=== PATIENT | male | born 1965 | race Caucasian/White ===

== ENCOUNTER 2022-02-16 17:57 | Inpatient (IN) ==
--- NOTE | 2022-02-16 19:18 | DR.GENAD ---
HPI Time Seen Time Seen by Provider: 02/16/22 19:05 PCP Primary Care Physician: Mena Complaint/Symptoms Chief Complaint Doctors Comments: LARGE GLUTEAL ABSCES FOR 3 DAYS,STARTED ON ANTIBIOTICS BY PCP ON YESTERDAY. STATED THAT HE DEVELOPED A FEVER TDAY AND MORE PAIN IN THAT AREA AND WAS NOT GIVEN PAIN MEDICATION BY PCP YETERDAY. Chief Complaint:: Pt states he has a large abcsess on his buttock that started three days ago. He was seen by PCP yesterday and started on antibiotics. He reports pain has worsened today and he has had a fever. COVID-19 Coronavirus risk:travel/contact w/high risk person: No Has patient experienced Coronavirus symptoms: No Source History Provided: Patient Mode of Arrival Mode of Arrival: Ambulatory Timing Onset of Chief Complaint: 02/14/22 PMH PMH Past Medical History: Yes Past Medical History: Diabetes Past Surgical History: Yes Surgical History: Appendectomy and Ortho Surgery Family History History of Family Medical Conditions: No Social History Does patient currently use any type of tobacco product: Yes Have you used tobacco products in the last 12 months: Yes Type of Tobacco Use: Cigarettes Does any household member use tobacco: No Alcohol Use: None Do you use any recreational Drugs:: No Lives With: Spouse Lives Where: Home Travel Risk Coronavirus risk:travel/contact w/high risk person: No Has patient experienced Coronavirus symptoms: No Infectious screening In the last 2 months have you had wt loss of >10#?: NO Have you had fever, night sweats or hemotysis?: No Have you traveled outside the country in the last 6 months?: No Isolation: Standard ROS Review of Systems Constitutional: No Symptoms Reported Eyes: No Symptoms Reported ENTM: No Symptoms Reported Respiratoy: No Symptoms Reported Cardiovascular: No Symptoms Reported Gastrointestinal/Abdominal: No Symptoms Reported Genitourinary: No Symptoms Reported and Other (R GLUTEAL ABSCESS.) Neurological: No Symptoms Reported Musculoskeletal: No Symptoms Reported Integumentary: No Symptoms Reported Hematologic/Lymphatic: No Symptoms Reported Endocrine: No Symptoms Reported Psychiatric: No Symptoms Reported All Other Systems: Reviewed and Negative PE Vital Signs Vitals: Temperature 98.3 F Pulse Rate 124 Respiratory Rate 24 Blood Pressure [Left Arm] 132/78 Blood Pressure 139/80 O2 Sat by Pulse Oximetry 98 General Limitations: No Limitations General Appearance: Alert and In No Apparent Distress Head Head Exam: Normal Inspection Eyes Eye exam: Normal Appearance ENT ENT Exam: Normal Exam External Ear Exam: Normal External Inspection TM/Canal Exam: Bilateral: Normal Nose Exam: Normal Nose Exam Mouth Exam: Normal Inspection Throat Exam: Normal Inspection Neck Neck Exam: Normal Inspection Chest Chest Inspection: Normal Inspection Respiratory Respiratory Exam: Normal Lung Sounds Bilat Respiratory Exam: Bilateral: Clear to Auscultation Cardiovascular Cardiovascular Exam: Regular Rate and Normal Rhythm Abdominal Exam Abdominal Exam: Normal Inspection, Normal Bowel Sounds and Soft Extremities Extremities Exam: Normal Inspection Back Back Exam: Normal Inspection Neurologic Neurological Exam: Alert and Oriented X3 Psychiatric Psychiatric Exam: Normal Affect and Normal Mood Skin Skin Exam: Warm, Dry, Intact, Normal Color and Other (R GLUTEAL ABSCESS) MDM Additional Information Findings: R GLUTEAL ABSCESS Differential Diagnosis Differential Diagnosis: GLUTEAL ABSCESS COURSE Treatment Treatment: PATIENT GOT BLOOD WORK AND HAD ELVATED WBC OF 21.2 AND HE HAD AN I AND D OF HIS R GLUTEAL ABSCESS AND WAS GIVEN CLINDAMYCIN 600MG IV. SPOKE TO DR ESPINOSA AND SHE STATED SHE WOULD ACCEPT THE PATIENT TO HOSPITAL FOR LEUCOCYTOSIN AND GLUTEAL ABSCESS. BLOOD CULTURES AND WOUND CULTURES WERE SENT. PATIENT IS AWARE OF THE INTENT TO ADMIT AND IS AGREABLE TO THE ADMISSION. ROR Labs Reviewed Laboratory Results Reviewed?: Yes Result Diagrams: 02/16/22 19:35 02/16/22 19:35 Laboratory: 02/16/22 23:35 Buttock Wound Gram Stain - Final WBC 21.2 X10^3/uL (3.6-10.0) H 02/16/22 19:35 RBC 4.79 X10^6/uL (4.7-6.0) 02/16/22 19:35 Hgb 15.2 g/dL (13.5-18.0) 02/16/22 19:35 Hct 43.1 % (42.0-54.0) 02/16/22 19:35 MCV 89.9 fL (80.0-100.0) 02/16/22 19:35 MCH 31.7 pg (27.0-34.0) 02/16/22 19:35 MCHC 35.3 g/dL (33.0-35.0) H 02/16/22 19:35 RDW 13.3 % (11.6-16.5) 02/16/22 19:35 Plt Count 311 X10^3/uL (150.0-450.0) 02/16/22 19:35 Plt Count Comment Adequate (ADEQUATE) 02/16/22 19:35 MPV 9.0 fL (7.4-11.0) 02/16/22 19:35 Neut % (Auto) 83.1 % (42.0-75.0) H 02/16/22 19:35 Lymph % (Auto) 7.1 % (21.0-51.0) L 02/16/22 19:35 Giles % (Auto) 8.0 % (0.0-13.0) 02/16/22 19:35 Eos % (Auto) 1.1 % (0.9-2.9) 02/16/22 19:35 Baso % (Auto) 0.7 % (0.2-1.0) 02/16/22 19:35 Neut # (Auto) 17.7 x10^3/uL (2.2-4.8) H 02/16/22 19:35 Lymph # (Auto) 1.5 X10^3/uL (1.3-2.9) 02/16/22 19:35 Giles # (Auto) 1.7 x10^3/uL (0.3-0.8) H 02/16/22 19:35 Eos # (Auto) 0.2 x10^3/uL (0.0-0.2) 02/16/22 19:35 Baso # (Auto) 0.1 X10^3/uL (0.0-0.1) 02/16/22 19:35 Absolute Nucleated RBC 0.0 /100WBC 02/16/22 19:35 Total Counted 100 02/16/22 19:35 Neutrophils % (Manual) 86 % (39-76) H 02/16/22 19:35 Band Neutrophils % 1 % (0-10) 02/16/22 19:35 Lymphocytes % (Manual) 6 % (13-43) L 02/16/22 19:35 Monocytes % (Manual) 5 % (4-9) 02/16/22 19:35 Eosinophils % (Manual) 2 % (0-6) 02/16/22 19:35 Plt Morphology Comment Normal (NORMAL) 02/16/22 19:35 RBC Morphology Normal (NORMAL) 02/16/22 19:35 Sodium 132 mmol/L (136-145) L 02/16/22 19:35 Corrected Sodium 138 mmol/L (136-145) 02/16/22 19:35 Potassium 4.9 mmol/L (3.5-5.1) 02/16/22 19:35 Chloride 94 mmol/L (98-107) L 02/16/22 19:35 Carbon Dioxide 28.6 mmol/L (21-32) 02/16/22 19:35 BUN 17 mg/dL (7-18) 02/16/22 19:35 Creatinine 1.05 mg/dL (0.70-1.30) 02/16/22 19:35 Est GFR (MDRD) Af Amer > 60 (>60) 02/16/22 19:35 Est GFR (MDRD) Non-Af > 60 (>60) 02/16/22 19:35 Glucose 341 mg/dL (65-99) H 02/16/22 19:35 Calcium 9.3 mg/dL (8.5-10.1) 02/16/22 19:35 Corrected Calcium 10.1 mg/dL (8.5-10.1) 02/16/22 19:35 Total Bilirubin 0.60 mg/dL (0.2-1.0) 02/16/22 19:35 AST 25 Units/L (15-37) 02/16/22 19:35 ALT 55 Units/L (12-78) 02/16/22 19:35 Alkaline Phosphatase 152 Units/L (46-116) H 02/16/22 19:35 Total Protein 7.7 g/dL (6.4-8.2) 02/16/22 19:35 Albumin 3.0 g/dL (3.4-5.0) L 02/16/22 19:35 Globulin 4.7 g/dL (2.5-4.5) H 02/16/22 19:35 Albumin/Globulin Ratio 0.6 Ratio (1.1-2.1) L 02/16/22 19:35 Other Results Comments: SODIUM LOW AT 132 AND GLUCOSE HIGH AT 341. WBC 21.2 Opioid Opioid Risk Tool Age (Quoc box if 16-45): No History of Preadolescent Sexual Abuse: No Total: 0 Total Score Risk Category: Low Risk Copyright: Freddy HORTON predicting aberrant behaviors Procedures Incision and Drainage Site: R GLUTEAL Blade Size: 11 I & D Procedure: betadine prep, sterile drapes applied, sterile dressing applied and gauze wick placed Progress: PROCEDURE WAS EXPLAINED ANDPATIENT SIGNED CONSENT FORM. AREA WAS CLEANED ITH BETADINE AND 10 CC 1%LIDOCAINE INJECTED, INCISED WITH #11 BLADE AND COPIOUS AMOUNTS OF PUNGENT EXUDATE WS OBTAINED. WOUND CULTURES WERE TAKEN AND LOCULATIONS WERE BROKEN WITH HEMOSTATS. AREA WAS FLUSHED WITH 180CC OF NACL AND IODOFORM GAUZE WAS PLACED AND AREA WAS CLEANED BY NURSE AND 4X4'S WERE APPLIED.PATIENT WAS GIVEN 600MG OF CLIDAMYCIN IFV AND SINCE HE HAS A 21.2 WILL ADMIT TO HOSPITAL FOR FURTHER THERAPY. BC WERE ALSO SENT. Diagnosis Discharge Problem: Abscess, gluteal, right, Hyperglycemia Leukocytosis (leucocytosis) Qualifiers: Qualified Code(s): D72.829 - Elevated white blood cell count, unspecified Instructions Forms: Precautions for COVID19 [facility] Social Distancing
[2022-02-16 19:50] LABS: BASOPHILS # (AUTO) 0.1 X10^3/uL (0.0-0.1); BASOPHILS % (AUTO) 0.7 % (0.2-1.0); EOSINOPHILS # (AUTO) 0.2 x10^3/uL (0.0-0.2); EOSINOPHILS % (AUTO) 1.1 % (0.9-2.9); HEMATOCRIT 43.1 % (42.0-54.0); HEMOGLOBIN 15.2 g/dL (13.5-18.0); LYMPHOCYTES # (AUTO) 1.5 X10^3/uL (1.3-2.9); LYMPHOCYTES % (AUTO) 7.1 % (21.0-51.0); MEAN CORPUSCULAR HEMOGLOBIN 31.7 pg (27.0-34.0); MEAN CORPUSCULAR HGB CONC 35.3 g/dL (33.0-35.0); MEAN CORPUSCULAR VOLUME 89.9 fL (80.0-100.0); MONOCYTES # (AUTO) 1.7 x10^3/uL (0.3-0.8); NEUTROPHILS # (AUTO) 17.7 x10^3/uL (2.2-4.8); NEUTROPHILS % (AUTO) 83.1 % (42.0-75.0); RED BLOOD COUNT 4.79 X10^6/uL (4.7-6.0); RED CELL DISTRIBUTION WIDTH 13.3 % (11.6-16.5); WHITE BLOOD COUNT 21.2 X10^3/uL (3.6-10.0)
[2022-02-16 20:02] LABS: ALANINE AMINOTRANSFERASE 55 Units/L (12-78); ALKALINE PHOSPHATASE 152 Units/L (46-116); ASPARTATE AMINO TRANSFERASE 25 Units/L (15-37); BLOOD UREA NITROGEN 17 mg/dL (7-18); CALCIUM 9.3 mg/dL (8.5-10.1); CARBON DIOXIDE 28.6 mmol/L (21-32); CHLORIDE 94 mmol/L (98-107); COR CA(FOR HYPOALB) 10.1 mg/dL (8.5-10.1); COR NA(FOR HYPERGLY) 138 mmol/L (136-145); CREATININE 1.05 mg/dL (0.70-1.30); SODIUM 132 mmol/L (136-145); TOTAL PROTEIN 7.7 g/dL (6.4-8.2); eGFR NON BLACK RACES > 60 (>60)
[2022-02-16 20:17] LABS: BAND NEUTROPHILS % 1 % (0-10)
[2022-02-16 20:18] LABS: PLATELET MORPHOLOGY COMMENT NORMAL (NORMAL)
[2022-02-16] MEDS ORDERED: XYLOCAINE 1 % (PLAIN) IM ONE (22:57)
[2022-02-16] MEDS ORDERED: XYLOCAINE 1 % (PLAIN) ONE (22:59)
[2022-02-16] MEDS ORDERED: BETADINE SOLN ONE (22:59)
[2022-02-16] MEDS ORDERED: BETADINE SOLN TOP ONE (23:16)
[2022-02-16] MEDS ORDERED: STERILE WATER IRRIGATION IR ONE (23:27)
[2022-02-16] MEDS ORDERED: NS 1,000 ML IV 1,000 ML ONE (23:52)
[2022-02-16] MEDS ORDERED: CLEOCIN 600 MG IV PREMIX 600 MG/50 ML BAG IV ONE (23:53)
[2022-02-17] MEDS: CLEOCIN 600 MG IV PREMIX 600 MG/50 ML BAG IV SCH ×4 (00:01→21:01)
[2022-02-17] MEDS: NS 1,000 ML IV 1,000 ML IV SCH ×3 (00:02→17:13)
[2022-02-17 02:39] VITALS: BMI 33.3
[2022-02-17 04:58] LABS: BASOPHILS # (AUTO) 0.1 X10^3/uL (0.0-0.1); BASOPHILS % (AUTO) 0.4 % (0.2-1.0); EOSINOPHILS # (AUTO) 0.1 x10^3/uL (0.0-0.2); EOSINOPHILS % (AUTO) 0.4 % (0.9-2.9); HEMATOCRIT 39.2 % (42.0-54.0); HEMOGLOBIN 13.6 g/dL (13.5-18.0); LYMPHOCYTES # (AUTO) 1.8 X10^3/uL (1.3-2.9); LYMPHOCYTES % (AUTO) 8.9 % (21.0-51.0); MEAN CORPUSCULAR HEMOGLOBIN 31.3 pg (27.0-34.0); MEAN CORPUSCULAR HGB CONC 34.7 g/dL (33.0-35.0); MEAN CORPUSCULAR VOLUME 90.1 fL (80.0-100.0); MEAN PLATELET VOLUME 9.3 fL (7.4-11.0); MONOCYTES # (AUTO) 1.7 x10^3/uL (0.3-0.8); MONOCYTES % (AUTO) 8.5 % (0.0-13.0); NEUTROPHILS # (AUTO) 16.6 x10^3/uL (2.2-4.8); NEUTROPHILS % (AUTO) 81.8 % (42.0-75.0); RED BLOOD COUNT 4.35 X10^6/uL (4.7-6.0); RED CELL DISTRIBUTION WIDTH 13.3 % (11.6-16.5); WHITE BLOOD COUNT 20.2 X10^3/uL (3.6-10.0)
[2022-02-17 05:24] LABS: ALANINE AMINOTRANSFERASE 45 Units/L (12-78); ALBUMIN 2.6 g/dL (3.4-5.0); ALKALINE PHOSPHATASE 137 Units/L (46-116); ASPARTATE AMINO TRANSFERASE 20 Units/L (15-37); BLOOD UREA NITROGEN 18 mg/dL (7-18); CALCIUM 8.7 mg/dL (8.5-10.1); CARBON DIOXIDE 27.8 mmol/L (21-32); CHLORIDE 94 mmol/L (98-107); COR CA(FOR HYPOALB) 9.8 mg/dL (8.5-10.1); COR NA(FOR HYPERGLY) 139 mmol/L (136-145); CREATININE 1.01 mg/dL (0.70-1.30); SODIUM 131 mmol/L (136-145); TOTAL PROTEIN 6.7 g/dL (6.4-8.2); eGFR NON BLACK RACES > 60 (>60)
[2022-02-17] MEDS: NovoLIN R (or HumuLIN R) SUBCUT PRN ×4 (06:39→21:02)
[2022-02-17] MEDS: PROTONIX INJ 40 MG VIAL IVP SCH (08:26)
[2022-02-17] MEDS: DIFLUCAN PO SCH (08:27)
[2022-02-17] MEDS: GLUCOPHAGE XR 24-HR PO SCH ×2 (08:27→20:48)
[2022-02-17] MEDS: ACTOS PO SCH (08:27)
[2022-02-17] MEDS ORDERED: REGLAN INJ 10 MG VIAL IVP ONE (12:15)
[2022-02-17] MEDS ORDERED: PEPCID 20 MG VIAL 20 MG in NS 50 ML IV 50 ML IV ONE (13:00)
--- NOTE | 2022-02-17 13:11 | RAD ---
HISTORYPreoperative clearance gluteal abscessSTUDYCHEST, 1 VIEWCOMPARISONNoneTECHNIQUEPortable AP view of the chestFINDINGSHeart size and mediastinal contours are normal. Lungs are clear as are the pleural spaces. No free air or pneumothorax. No acute bony abonormality.IMPRESSIONNo acute radiographic abnormalities of the chestElectronically signed by: JOSE OCHOA (February 17, 2022 13:10:45)
--- NOTE | 2022-02-17 15:19 | DR.CONSULT ---
CONSULT Consultation for Day of: Date: 02/17/22 Chief Complaint Chief Complaint: 56 yo male with poorly controlled diabetes who has swelling and pain of the right medial buttock Allergies Allergies Allergy/AdvReac Type Severity Reaction Status Date / Time No Known Drug Allergies Allergy Verified 02/16/22 21:40 History of Present Illness History of Present Illness: As above. Had partial incision and drainage of this polo- rectal abscess. Past Medical History Past Medical History: Diabetes Past Surgical History Surgical History: Appendectomy and Tonsillectomy Family History Family Medical History: Diabetes Mellitus, Cancer, NH, Coronary Artery Disease, Heart Failure and Hypertension Social History Does patient currently use any type of tobacco product: Yes (Cigarettes) Have you used tobacco products in the last 12 months: Yes Type of Tobacco Use: Cigarettes How many years tobacco product used: 40 Packs per day or dips/chews per day: 1-2 Does any household member use tobacco: No Alcohol Use: None Drug Use: None Medications Home Medications: No Known Drug Allergies Allergy (Verified 02/16/22 21:40) CONTINUE taking the following medications diclofenac sodium 75 mg PO BID 02/17/22 [History] metformin 1,000 mg PO BID 02/17/22 [History] Review of Systems Constitutional: See HPI Eyes: No Symptoms Reported ENT: No Symptoms Reported Respiratory: No Symptoms Reported Cardiovascular: No Symptoms Reported Gastrointestinal: No Symptoms Reported Genitourinary: No Symptoms Reported Musculoskeletal: No Symptoms Reported Skin: No Symptoms Reported Neurological: No Symptoms Reported Physical Exam Vital Signs: Temperature 98.1 F Pulse Rate [Left Brachial] 84 Pulse Rate 124 Respiratory Rate 20 Blood Pressure [Left Arm] 149/72 Blood Pressure 139/80 O2 Sat by Pulse Oximetry 94 Oriented: Normal, Time, Person and Place Eyes: Normal Ear: Normal Nose: Normal Throat: Normal Respiratory: Clear Throughout Cardiovascular: Normal : Normal Auscultation: Bowel Sounds: Normal Palpation: Normal Tenderness: Normal Skin: Other (4 cm right sided polo- rectal abscess patially drained with black necrotic skin. ) Musculoskeletal: Normal Psychiatric: Normal Mood Description: Calm Affect: Quiet Speech Pattern: Clear Plan (1) Perirectal abscess: Status: Acute Plan: continue IV antibiotics and plam adequate incision and drainage of polo-rectal abscess. (2) Diabetes: Status: Acute Plan: sliding scale insulin
[2022-02-17] MEDS ORDERED: NS 1,000 ML IV 1,000 ML ONE (15:34)
[2022-02-17] MEDS ORDERED: DIPRIVAN VIAL 20 ML ONE (15:37)
[2022-02-17] MEDS ORDERED: BETADINE SOLN ONE (15:37)
[2022-02-17] MEDS ORDERED: XYLOCAINE 2 % (PLAIN) ONE (15:37)
[2022-02-17] MEDS ORDERED: FENTANYL VIAL INJ 100 mcg ONE (15:38)
[2022-02-17] MEDS ORDERED: VERSED ONE (15:38)
[2022-02-17] MEDS ORDERED: ZOFRAN INJ 4 MG VIAL ONE (15:38)
[2022-02-17] MEDS ORDERED: XYLOCAINE 1 % (PLAIN) ONE (15:52)
[2022-02-17] MEDS ORDERED: KETAMINE HCL ONE (16:00)
--- NOTE | 2022-02-17 18:10 | OR.IMMED ---
IMMEDIATE POST-OP NOTE Immediate Post-Op Note Pre-Op Diagnosis: right polo-rectal abscess Post-Op Diagnosis: same Procedure: incision and drainage of right polo-rectal abscess Description of Procedure: see operative summary Surgeon/Dimensional Engineer: Alicja Findings: as above Specimens Removed: none Estimated Blood Loss: minimal Drains: NONE Complications: none Discharge Progress Notes: Would packed with 4x4 and dressing applied Condition: Stable Final Diagnosis: as above
[2022-02-17] MEDS: ULTRAM PO PRN (20:50)
[2022-02-17] MEDS: SNACK - Diabetic Appropriate PO SCH (20:52)
[2022-02-18] MEDS: NS 1,000 ML IV 1,000 ML IV SCH ×4 (01:05→21:22)
[2022-02-18 05:28] LABS: ALANINE AMINOTRANSFERASE 36 Units/L (12-78); ALBUMIN 2.3 g/dL (3.4-5.0); ALKALINE PHOSPHATASE 126 Units/L (46-116); ASPARTATE AMINO TRANSFERASE 18 Units/L (15-37); BLOOD UREA NITROGEN 13 mg/dL (7-18); CALCIUM 8.4 mg/dL (8.5-10.1); CARBON DIOXIDE 26.5 mmol/L (21-32); CHLORIDE 99 mmol/L (98-107); COR CA(FOR HYPOALB) 9.8 mg/dL (8.5-10.1); COR NA(FOR HYPERGLY) 137 mmol/L (136-145); SODIUM 135 mmol/L (136-145); TOTAL PROTEIN 6.4 g/dL (6.4-8.2); eGFR NON BLACK RACES > 60 (>60)
[2022-02-18 05:32] LABS: BASOPHILS # (AUTO) 0.1 X10^3/uL (0.0-0.1); BASOPHILS % (AUTO) 0.8 % (0.2-1.0); EOSINOPHILS # (AUTO) 0.2 x10^3/uL (0.0-0.2); EOSINOPHILS % (AUTO) 1.2 % (0.9-2.9); HEMATOCRIT 37.7 % (42.0-54.0); LYMPHOCYTES % (AUTO) 11.1 % (21.0-51.0); MEAN CORPUSCULAR HEMOGLOBIN 31.1 pg (27.0-34.0); MEAN CORPUSCULAR HGB CONC 34.6 g/dL (33.0-35.0); MEAN CORPUSCULAR VOLUME 89.9 fL (80.0-100.0); MEAN PLATELET VOLUME 9.1 fL (7.4-11.0); MONOCYTES # (AUTO) 1.4 x10^3/uL (0.3-0.8); MONOCYTES % (AUTO) 8.1 % (0.0-13.0); NEUTROPHILS # (AUTO) 14.1 x10^3/uL (2.2-4.8); NEUTROPHILS % (AUTO) 78.8 % (42.0-75.0); RED BLOOD COUNT 4.19 X10^6/uL (4.7-6.0); RED CELL DISTRIBUTION WIDTH 13.3 % (11.6-16.5); WHITE BLOOD COUNT 17.9 X10^3/uL (3.6-10.0)
[2022-02-18] MEDS: CLEOCIN 600 MG IV PREMIX 600 MG/50 ML BAG IV SCH ×3 (05:50→21:22)
[2022-02-18] MEDS: DIFLUCAN PO SCH (09:51)
[2022-02-18] MEDS: ACTOS PO SCH (09:51)
[2022-02-18] MEDS: GLUCOPHAGE XR 24-HR PO SCH ×2 (09:52→21:22)
[2022-02-18] MEDS: PROTONIX INJ 40 MG VIAL IVP SCH (12:31)
[2022-02-18] MEDS: NovoLIN R (or HumuLIN R) SUBCUT PRN ×3 (13:19→21:22)
--- NOTE | 2022-02-18 20:39 | NOTE.SOAP ---
Soap Note Note for Day of Date of Exam: 02/18/22 Subjective Data Subjective Data: POD # 1 after incision and drainage of right polo-rectal abscess. Wound repacked by me today. Objective Data Temperature: 98.5 F Pulse Rate: 79 Respiratory Rate: 20 Blood Pressure: 146/97 Objective Data: Eating better , WBC decreased tp 1.9 k from 21 k on admission. Blood sugars are improved . Redness of the rightn buttock much improved from the OR yesterday. Wound culture growing gram positive cocci but no final ID or sensitivities yet. Assessment Assessment: Right polo rectal abscess . Patient much improved Plan Plan: Continue current IV antibiotics and daily wound care .
[2022-02-18] MEDS: SNACK - Diabetic Appropriate PO SCH (21:22)
[2022-02-18] MEDS: ULTRAM PO PRN (21:23)
--- NOTE | 2022-02-18 23:53 | DR.OPNOTE ---
OP NOTE Pre-Op Diagnosis: right teresa-rectal abscess Post-Op Diagnosis: same Procedure Date Date Of Procedure: 02/17/22 Procedure: PROCEDURE: INCISION AND DRAINAGE OF RIGHT TERESA-RECTAL ABSCESS NARRATIVE : Patient was taken to the operative suite and placed in the left lateral position. The right buttock was prepped and draped in sterile fashion. Time out for the procedure obtained . Skin overlying this 5 cm abscess in the right buttock and teresa-rectal space was infiltrated with 10 cc's of 0. 5% Marcaine and then opened with a radial incision using a #15 knife approximately 4 cm in length. All gross purulence and necrotic material evacuated or excised. Wound irrigated with saline and then packed with saline soaked gauze , four by fours dressings, ABD dressing and mesh panties. Patient tolerated this well. Type of Anesthesia: Local (0.5 % Marcaine) Anesthesia Comment: plus MAC Findings: right sided teresa-rectal abscess , inadequately drained in the ER with necrotic skin Specimen/Pathology: cultures of right teresa-rectal abscess Type of Fluids Used:: Lactated Ringers EBL: minimal Cultures: cultures of abscess Complications:: none Needle/Sponge Count:: correct Disposition/Condition: Pt. tolerated procedure without difficulty. Taken to PACU in stable condition.
[2022-02-19 05:02] LABS: BASOPHILS # (AUTO) 0.1 X10^3/uL (0.0-0.1); BASOPHILS % (AUTO) 0.6 % (0.2-1.0); EOSINOPHILS # (AUTO) 0.3 x10^3/uL (0.0-0.2); EOSINOPHILS % (AUTO) 1.4 % (0.9-2.9); HEMATOCRIT 35.6 % (42.0-54.0); HEMOGLOBIN 12.5 g/dL (13.5-18.0); LYMPHOCYTES # (AUTO) 2.1 X10^3/uL (1.3-2.9); LYMPHOCYTES % (AUTO) 11.7 % (21.0-51.0); MEAN CORPUSCULAR HEMOGLOBIN 31.2 pg (27.0-34.0); MEAN CORPUSCULAR HGB CONC 35.2 g/dL (33.0-35.0); MEAN CORPUSCULAR VOLUME 88.6 fL (80.0-100.0); MEAN PLATELET VOLUME 8.7 fL (7.4-11.0); MONOCYTES # (AUTO) 1.4 x10^3/uL (0.3-0.8); MONOCYTES % (AUTO) 8.1 % (0.0-13.0); NEUTROPHILS # (AUTO) 13.8 x10^3/uL (2.2-4.8); NEUTROPHILS % (AUTO) 78.2 % (42.0-75.0); RED BLOOD COUNT 4.01 X10^6/uL (4.7-6.0); RED CELL DISTRIBUTION WIDTH 13.2 % (11.6-16.5); WHITE BLOOD COUNT 17.6 X10^3/uL (3.6-10.0)
[2022-02-19 05:06] LABS: ALANINE AMINOTRANSFERASE 32 Units/L (12-78); ALBUMIN 2.3 g/dL (3.4-5.0); ALKALINE PHOSPHATASE 127 Units/L (46-116); ASPARTATE AMINO TRANSFERASE 19 Units/L (15-37); BLOOD UREA NITROGEN 11 mg/dL (7-18); CALCIUM 8.3 mg/dL (8.5-10.1); CARBON DIOXIDE 30.4 mmol/L (21-32); CHLORIDE 97 mmol/L (98-107); COR CA(FOR HYPOALB) 9.7 mg/dL (8.5-10.1); COR NA(FOR HYPERGLY) 136 mmol/L (136-145); SODIUM 134 mmol/L (136-145); TOTAL PROTEIN 6.4 g/dL (6.4-8.2); eGFR NON BLACK RACES > 60 (>60)
[2022-02-19] MEDS: NS 1,000 ML IV 1,000 ML IV SCH ×2 (05:23→08:14)
[2022-02-19] MEDS: CLEOCIN 600 MG IV PREMIX 600 MG/50 ML BAG IV SCH (05:23)
[2022-02-19] MEDS: ACTOS PO SCH (08:12)
[2022-02-19] MEDS: PROTONIX INJ 40 MG VIAL IVP SCH (08:12)
[2022-02-19] MEDS: DIFLUCAN PO SCH (08:12)
[2022-02-19] MEDS: GLUCOPHAGE XR 24-HR PO SCH (08:13)
[2022-02-19] MEDS ORDERED: STERILE WATER IRRIGATION IR ONE (08:49)
[2022-02-19] MEDS ORDERED: FLAGYL TAB 500 MG PO SCH (10:00)
[2022-02-19] MEDS ORDERED: LEVAQUIN TAB 750 MG PO SCH (10:00)
[2022-02-19] MEDS ORDERED: VSL#3 PO SCH (10:00)
--- NOTE | 2022-02-19 11:09 | NOTE.SOAP ---
Soap Note Note for Day of Date of Exam: 02/19/22 Subjective Data Subjective Data: POD # 2 after I and D right perirectal abscess Objective Data Temperature: 98.4 F Pulse Rate: 78 Respiratory Rate: 18 Blood Pressure: 155/71 O2 Sat by Pulse Oximetry: 92 Objective Data: Wound packed by nurse without incident Assessment Assessment: right polo-rectal abscess s/p I and D . Plan Plan: May discharge home from my standpoint at any time. Plan to pack wound daily and f/u with Dr. Helm in my office 1 week after discharge.
[2022-02-19] MEDS: NovoLIN R (or HumuLIN R) SUBCUT PRN (11:19)
[2022-02-19 12:02] VITALS: BP 171/74
== END 2022-02-19 13:10 | disposition home or self-care (01) | DRG 603 ==
LOC: ER 17:57 → MED/SURG 02-17 01:17
PROVIDERS: ADMIT Internal Medicine; ATTEND Obstetrics & Gynecology Obstetrics

== ENCOUNTER 2024-12-15 09:12 | Inpatient (IN) ==
[2024-12-15] MEDS: NOZIN NASAL SANITIZER TP ONE (09:27)
[2024-12-15] MEDS: NS 1,000 ML IV 1,000 ML ONE ×3 (09:28→13:45)
[2024-12-15] MEDS: HEPARIN SODIUM INJ 5000 UNITS ONE ×2 (09:45→12:58)
[2024-12-15] MEDS: DIPRIVAN VIAL 20 ML ONE ×3 (09:45→12:57)
[2024-12-15] MEDS: VERSED ONE (09:45)
[2024-12-15] MEDS: FENTANYL VIAL INJ 100 mcg ONE ×2 (09:45→13:28)
[2024-12-15] MEDS: DUONEB 0.5 MG/3 MG (3 mL) NEB ONE (09:47)
[2024-12-15] MEDS: ZOFRAN INJ 4 MG VIAL ONE (09:50)
[2024-12-15] MEDS: PEPCID 20 MG VIAL ONE (09:50)
[2024-12-15] MEDS: REGLAN INJ 10 MG VIAL ONE (09:50)
[2024-12-15] MEDS: NS 1,000 ML IV 1,200 ML IV PRN (10:30)
[2024-12-15] MEDS: ZOFRAN INJ 4 MG VIAL IVP PRN (11:00)
[2024-12-15] MEDS: REGLAN INJ 10 MG VIAL IVP PRN (11:00)
[2024-12-15] MEDS: PEPCID 20 MG VIAL IVP PRN (11:00)
[2024-12-15] MEDS: NS 100 ML IV 100 ML ONE (11:25)
[2024-12-15] MEDS: ANCEF VIAL 1 GRAM ONE (11:25)
[2024-12-15] MEDS: ANCEF VIAL 1 GRAM IV PRN (11:25)
[2024-12-15] MEDS ORDERED: PRECEDEX INJ VIAL ONE (11:28)
[2024-12-15] MEDS ORDERED: KETAMINE HCL ONE (11:28)
[2024-12-15] MEDS: PRECEDEX INJ VIAL IVP PRN (11:35)
[2024-12-15] MEDS: KETAMINE HCL IV PRN (11:35)
[2024-12-15] MEDS: TORADOL 30 MG VIAL ONE (11:54)
[2024-12-15] MEDS: VISIPAQUE 100 ML ONE (11:55)
[2024-12-15] MEDS: VISIPAQUE 50 ML ONE (11:55)
[2024-12-15] MEDS: MARCAINE 0.5% ONE (11:55)
[2024-12-15] MEDS: HEPARIN 1,000 UNIT/500 ML-NS 3,000 UNIT/1,500 ML IV.SOLN ONE (11:55)
[2024-12-15] MEDS: TORADOL 30 MG VIAL IVP PRN (11:57)
[2024-12-15] MEDS: ROBINUL ONE (11:58)
[2024-12-15] MEDS: ROBINUL IVP PRN (12:00)
[2024-12-15] MEDS: VERSED IVP PRN (12:03)
[2024-12-15] MEDS: NEO-SYNEPHRINE INJ ONE (12:17)
[2024-12-15] MEDS: HEPARIN SODIUM INJ 5000 UNITS IVP PRN (12:59)
[2024-12-15] MEDS: NITROGLYCERIN IV PREMIX 50 MG 50 MG/250 ML BAG ONE (13:06)
[2024-12-15] MEDS: NEO-SYNEPHRINE INJ IVP PRN (13:22)
[2024-12-15] MEDS: ACTIVASE CATHFLO ONE (13:40)
[2024-12-15] MEDS ORDERED: NovoLIN R (or HumuLIN R) SUBCUT PRN (13:58)
--- NOTE | 2024-12-15 13:58 | OR.IMMED ---
IMMEDIATE POST-OP NOTE Immediate Post-Op Note Date of surgery/procedure: 12/15/24 Pre-Op Diagnosis: Critical ischemia right leg Post-Op Diagnosis: Same, postop thrombosis of superficial femoral artery stents after intervention Procedure: Aortogram, arteriogram with extremity atherectomy and drug eluting stenting placement of the entire right superficial femoral artery, angioplasty right posterior tibial artery, angioplasty right anterior tibial artery, intravascular ultrasound of the arteries of the right leg, placement of EKOS catheter of the arteries of the right leg Surgeon/Agricultural Equipment Sales Engineer: Jassi Helm MD, FACS Findings: Completely occluded right superficial artery. Patent popliteal artery. Disease of the anterior tibial and posterior tibial arteries after intervention patient with evidence of thrombosis of the stents of the right superficial femoral artery Estimated Blood Loss: 100cc Complications: as above Progress Notes: To CCU for continued directed thrombolysis arteries right leg
[2024-12-15] MEDS: FENTANYL VIAL INJ 100 mcg IVP PRN (13:59)
[2024-12-15] MEDS: ACTIVASE CATHFLO 12 MG in NS 250 ML IV 228 ML IV SCH (14:00)
[2024-12-15] MEDS ORDERED: ACTIVASE CATHFLO 12 MG in NS 250 ML IV 228 ML INTRACATH ONE (14:02)
[2024-12-15] MEDS ORDERED: PHARMACY CONSULT EKOS LOVENOX XX SCH (15:00)
[2024-12-15] MEDS: PERCOCET TAB 5/325 MG PO PRN (15:04)
[2024-12-15 15:10] LABS: BASOPHILS # (AUTO) 0.1 X10^3/uL (0.0-0.1); BASOPHILS % (AUTO) 1.2 % (0.2-1.0); EOSINOPHILS # (AUTO) 0.3 x10^3/uL (0.0-0.2); EOSINOPHILS % (AUTO) 2.6 % (0.9-2.9); HEMATOCRIT 32.7 % (42.0-54.0); HEMOGLOBIN 10.7 g/dL (13.5-18.0); LYMPHOCYTES # (AUTO) 1.4 X10^3/uL (1.3-2.9); LYMPHOCYTES % (AUTO) 12.1 % (21.0-51.0); MEAN CORPUSCULAR HEMOGLOBIN 30.5 pg (27.0-34.0); MEAN CORPUSCULAR HGB CONC 32.9 g/dL (33.0-35.0); MEAN CORPUSCULAR VOLUME 92.9 fL (80.0-100.0); MEAN PLATELET VOLUME 8.8 fL (7.4-11.0); MONOCYTES % (AUTO) 8.5 % (0.0-13.0); NEUTROPHILS # (AUTO) 8.6 x10^3/uL (2.2-4.8); NEUTROPHILS % (AUTO) 75.6 % (42.0-75.0); PLATELET COUNT 257 X10^3/uL (150.0-450.0); RED BLOOD COUNT 3.52 X10^6/uL (4.7-6.0); RED CELL DISTRIBUTION WIDTH 15.8 % (11.6-16.5); WHITE BLOOD COUNT 11.4 X10^3/uL (3.6-10.0)
[2024-12-15 16:58] VITALS: BMI 40.7
[2024-12-15] MEDS: DILAUDID INJ IVP PRN (19:18)
[2024-12-15] MEDS: DUONEB 0.5 MG/3 MG (3 mL) NEB SCH (20:06)
[2024-12-15 20:35] LABS: BASOPHILS # (AUTO) 0.2 X10^3/uL (0.0-0.1); BASOPHILS % (AUTO) 1.7 % (0.2-1.0); EOSINOPHILS # (AUTO) 0.1 x10^3/uL (0.0-0.2); EOSINOPHILS % (AUTO) 0.5 % (0.9-2.9); HEMATOCRIT 33.6 % (42.0-54.0); HEMOGLOBIN 10.9 g/dL (13.5-18.0); LYMPHOCYTES # (AUTO) 0.8 X10^3/uL (1.3-2.9); LYMPHOCYTES % (AUTO) 5.3 % (21.0-51.0); MEAN CORPUSCULAR HEMOGLOBIN 29.7 pg (27.0-34.0); MEAN CORPUSCULAR HGB CONC 32.6 g/dL (33.0-35.0); MEAN CORPUSCULAR VOLUME 90.9 fL (80.0-100.0); MEAN PLATELET VOLUME 8.2 fL (7.4-11.0); MONOCYTES # (AUTO) 1.1 x10^3/uL (0.3-0.8); MONOCYTES % (AUTO) 7.7 % (0.0-13.0); NEUTROPHILS # (AUTO) 12.1 x10^3/uL (2.2-4.8); NEUTROPHILS % (AUTO) 84.8 % (42.0-75.0); PLATELET COUNT 213 X10^3/uL (150.0-450.0); RED BLOOD COUNT 3.69 X10^6/uL (4.7-6.0); RED CELL DISTRIBUTION WIDTH 16.4 % (11.6-16.5); WHITE BLOOD COUNT 14.3 X10^3/uL (3.6-10.0)
[2024-12-15] MEDS: LOVENOX INJ 120 MG SYR SC SCH (20:41)
[2024-12-15] MEDS: FLOMAX PO SCH (20:41)
[2024-12-15] MEDS: SNACK - Diabetic Appropriate PO SCH (20:44)
[2024-12-16 01:56] LABS: BASOPHILS # (AUTO) 0.1 X10^3/uL (0.0-0.1); EOSINOPHILS # (AUTO) 0.1 x10^3/uL (0.0-0.2); EOSINOPHILS % (AUTO) 0.6 % (0.9-2.9); HEMATOCRIT 31.3 % (42.0-54.0); HEMOGLOBIN 10.4 g/dL (13.5-18.0); LYMPHOCYTES # (AUTO) 1.1 X10^3/uL (1.3-2.9); LYMPHOCYTES % (AUTO) 8.9 % (21.0-51.0); MEAN CORPUSCULAR HEMOGLOBIN 30.3 pg (27.0-34.0); MEAN CORPUSCULAR HGB CONC 33.1 g/dL (33.0-35.0); MEAN CORPUSCULAR VOLUME 91.6 fL (80.0-100.0); MONOCYTES # (AUTO) 0.9 x10^3/uL (0.3-0.8); MONOCYTES % (AUTO) 7.8 % (0.0-13.0); NEUTROPHILS # (AUTO) 9.7 x10^3/uL (2.2-4.8); NEUTROPHILS % (AUTO) 81.7 % (42.0-75.0); PLATELET COUNT 231 X10^3/uL (150.0-450.0); RED BLOOD COUNT 3.42 X10^6/uL (4.7-6.0); RED CELL DISTRIBUTION WIDTH 16.1 % (11.6-16.5); WHITE BLOOD COUNT 11.9 X10^3/uL (3.6-10.0)
[2024-12-16] MEDS: NS 500 ML IV 500 ML IV SCH (07:48)
[2024-12-16 08:55] LABS: BASOPHILS # (AUTO) 0.1 X10^3/uL (0.0-0.1); BASOPHILS % (AUTO) 0.8 % (0.2-1.0); EOSINOPHILS # (AUTO) 0.1 x10^3/uL (0.0-0.2); HEMATOCRIT 27.7 % (42.0-54.0); HEMOGLOBIN 9.2 g/dL (13.5-18.0); LYMPHOCYTES # (AUTO) 1.1 X10^3/uL (1.3-2.9); LYMPHOCYTES % (AUTO) 10.6 % (21.0-51.0); MEAN CORPUSCULAR HEMOGLOBIN 30.6 pg (27.0-34.0); MEAN CORPUSCULAR HGB CONC 33.4 g/dL (33.0-35.0); MEAN CORPUSCULAR VOLUME 91.7 fL (80.0-100.0); MEAN PLATELET VOLUME 8.1 fL (7.4-11.0); MONOCYTES % (AUTO) 9.7 % (0.0-13.0); NEUTROPHILS # (AUTO) 8.5 x10^3/uL (2.2-4.8); NEUTROPHILS % (AUTO) 77.9 % (42.0-75.0); PLATELET COUNT 226 X10^3/uL (150.0-450.0); RED BLOOD COUNT 3.03 X10^6/uL (4.7-6.0); WHITE BLOOD COUNT 10.9 X10^3/uL (3.6-10.0)
[2024-12-16] MEDS: NORVASC TAB 10 MG PO SCH (09:48)
[2024-12-16] MEDS: PROTONIX TAB 40 MG PO SCH (09:48)
[2024-12-16] MEDS: MICARDIS PO SCH (09:48)
[2024-12-16] MEDS: DILAUDID INJ IVP PRN (12:09)
[2024-12-16 15:01] LABS: BASOPHILS # (AUTO) 0.1 X10^3/uL (0.0-0.1); BASOPHILS % (AUTO) 0.9 % (0.2-1.0); EOSINOPHILS % (AUTO) 0.4 % (0.9-2.9); LYMPHOCYTES # (AUTO) 0.9 X10^3/uL (1.3-2.9); LYMPHOCYTES % (AUTO) 8.4 % (21.0-51.0); MEAN CORPUSCULAR HEMOGLOBIN 31.1 pg (27.0-34.0); MEAN CORPUSCULAR HGB CONC 33.3 g/dL (33.0-35.0); MEAN CORPUSCULAR VOLUME 93.5 fL (80.0-100.0); MEAN PLATELET VOLUME 8.2 fL (7.4-11.0); MONOCYTES # (AUTO) 1.1 x10^3/uL (0.3-0.8); MONOCYTES % (AUTO) 9.6 % (0.0-13.0); NEUTROPHILS # (AUTO) 9.1 x10^3/uL (2.2-4.8); NEUTROPHILS % (AUTO) 80.7 % (42.0-75.0); PLATELET COUNT 217 X10^3/uL (150.0-450.0); RED BLOOD COUNT 2.57 X10^6/uL (4.7-6.0); RED CELL DISTRIBUTION WIDTH 15.5 % (11.6-16.5); WHITE BLOOD COUNT 11.3 X10^3/uL (3.6-10.0)
[2024-12-16] MEDS: DUONEB 0.5 MG/3 MG (3 mL) NEB ONE (19:15)
[2024-12-16 20:52] LABS: BASOPHILS # (AUTO) 0.1 X10^3/uL (0.0-0.1); BASOPHILS % (AUTO) 0.8 % (0.2-1.0); EOSINOPHILS # (AUTO) 0.1 x10^3/uL (0.0-0.2); EOSINOPHILS % (AUTO) 0.7 % (0.9-2.9); HEMOGLOBIN 7.8 g/dL (13.5-18.0); LYMPHOCYTES # (AUTO) 1.1 X10^3/uL (1.3-2.9); LYMPHOCYTES % (AUTO) 10.4 % (21.0-51.0); MEAN CORPUSCULAR HEMOGLOBIN 30.6 pg (27.0-34.0); MEAN CORPUSCULAR HGB CONC 33.8 g/dL (33.0-35.0); MEAN CORPUSCULAR VOLUME 90.6 fL (80.0-100.0); MONOCYTES # (AUTO) 1.3 x10^3/uL (0.3-0.8); MONOCYTES % (AUTO) 12.2 % (0.0-13.0); NEUTROPHILS # (AUTO) 8.1 x10^3/uL (2.2-4.8); NEUTROPHILS % (AUTO) 75.9 % (42.0-75.0); PLATELET COUNT 217 X10^3/uL (150.0-450.0); RED BLOOD COUNT 2.54 X10^6/uL (4.7-6.0); RED CELL DISTRIBUTION WIDTH 15.8 % (11.6-16.5); WHITE BLOOD COUNT 10.6 X10^3/uL (3.6-10.0)
--- NOTE | 2024-12-16 22:11 | RAD ---
EXAM: KNEE, AP/LAT RIGHT HISTORY: EKOS CATHETER WIRE PLACEMENT ; COMPARISON: None. TECHNIQUE: FINDINGS: No evidence for fracture or malalignment. Bone density is normal without evidence for focal osseous l esion, periosteal reaction, or cortical erosion. There is no significant arthropathy. Soft tissues de monstrate vascular stent. IMPRESSION: No acute osseous abnormality identified THIS IS AN ELECTRONICALLY VERIFIED FINAL REPORT 12/16/2024 10:07 PM - Electronically signed by Bernardo Strickland MD
--- NOTE | 2024-12-16 23:47 | NOTE.SOAP ---
Soap Note Note for Day of Date of Exam: 12/16/24 Subjective Data Subjective Data: Postoperative day 1 after stenting of completely occluded right superficial femoral artery complicated by thrombosis of unknown etiology. EKOS catheter placed. Patient doing well. Right foot is warm but he complains of pain. Excellent Doppler signals of both the posterior tibial and anterior tibial arteries with biphasic flow Objective Data Temperature: 97.9 F Pulse Rate: 102 Respiratory Rate: 27 Blood Pressure: 114/56 O2 Sat by Pulse Oximetry: 98 Objective Data: Exam as above. Patient with swelling to the right calf. Assessment Assessment: Critical ischemia of the right leg with completely occluded right superficial femoral artery with severe disease of the right anterior and posterior tibial arteries. The anterior and posterior tibial arteries were balloon dilated. Plan Plan: Return to the operating room tomorrow for repeat arteriogram and additional intervention if necessary. Finish 24 hours of thrombolysis. This is the second day of directed observed thrombolysis of the right leg
[2024-12-17] MEDS: NS 500 ML IV 500 ML IV SCH (00:31)
[2024-12-17 02:11] LABS: BASOPHILS # (AUTO) 0.1 X10^3/uL (0.0-0.1); BASOPHILS % (AUTO) 0.5 % (0.2-1.0); EOSINOPHILS % (AUTO) 0.4 % (0.9-2.9); HEMATOCRIT 22.7 % (42.0-54.0); HEMOGLOBIN 7.7 g/dL (13.5-18.0); LYMPHOCYTES # (AUTO) 0.9 X10^3/uL (1.3-2.9); LYMPHOCYTES % (AUTO) 8.6 % (21.0-51.0); MEAN CORPUSCULAR HEMOGLOBIN 30.9 pg (27.0-34.0); MEAN CORPUSCULAR HGB CONC 33.9 g/dL (33.0-35.0); MEAN CORPUSCULAR VOLUME 91.2 fL (80.0-100.0); MEAN PLATELET VOLUME 8.2 fL (7.4-11.0); MONOCYTES # (AUTO) 1.1 x10^3/uL (0.3-0.8); MONOCYTES % (AUTO) 10.7 % (0.0-13.0); NEUTROPHILS # (AUTO) 8.2 x10^3/uL (2.2-4.8); NEUTROPHILS % (AUTO) 79.8 % (42.0-75.0); PLATELET COUNT 206 X10^3/uL (150.0-450.0); RED BLOOD COUNT 2.49 X10^6/uL (4.7-6.0); RED CELL DISTRIBUTION WIDTH 15.3 % (11.6-16.5); WHITE BLOOD COUNT 10.3 X10^3/uL (3.6-10.0)
--- NOTE | 2024-12-17 07:38 | RAD ---
EXAM: Portable chest HISTORY: Shortness of breath COMPARISON: 11/19/2023 FINDINGS: Heart is enlarged. No congestive heart failure is noted. No acute alveolar infiltrates, pleural eff usions, or pneumothoraces are identified. Bony thorax is unremarkable. IMPRESSION: Cardiomegaly without congestive heart failure No acute infiltrates THIS IS AN ELECTRONICALLY VERIFIED FINAL REPORT 12/17/2024 7:34 AM - Electronically signed by Pool Baptiste MD
[2024-12-17 09:13] LABS: BASOPHILS % (AUTO) 0.4 % (0.2-1.0); EOSINOPHILS # (AUTO) 0.1 x10^3/uL (0.0-0.2); EOSINOPHILS % (AUTO) 0.5 % (0.9-2.9); HEMATOCRIT 20.6 % (42.0-54.0); HEMOGLOBIN 7.2 g/dL (13.5-18.0); LYMPHOCYTES # (AUTO) 1.1 X10^3/uL (1.3-2.9); LYMPHOCYTES % (AUTO) 10.6 % (21.0-51.0); MEAN CORPUSCULAR HEMOGLOBIN 32.2 pg (27.0-34.0); MEAN CORPUSCULAR HGB CONC 34.8 g/dL (33.0-35.0); MEAN CORPUSCULAR VOLUME 92.5 fL (80.0-100.0); MEAN PLATELET VOLUME 8.2 fL (7.4-11.0); MONOCYTES # (AUTO) 1.3 x10^3/uL (0.3-0.8); MONOCYTES % (AUTO) 12.9 % (0.0-13.0); NEUTROPHILS # (AUTO) 7.6 x10^3/uL (2.2-4.8); NEUTROPHILS % (AUTO) 75.6 % (42.0-75.0); PLATELET COUNT 196 X10^3/uL (150.0-450.0); RED BLOOD COUNT 2.23 X10^6/uL (4.7-6.0); RED CELL DISTRIBUTION WIDTH 15.4 % (11.6-16.5)
[2024-12-17] MEDS: ZOFRAN INJ 4 MG VIAL IVP PRN ×2 (10:23→12:01)
[2024-12-17] MEDS: HEPARIN SODIUM INJ 5000 UNITS ONE (10:59)
--- NOTE | 2024-12-17 11:08 | DR.OPNOTE ---
OP NOTE Pre-Op Diagnosis: Critical ischemia right lower Post-Op Diagnosis: Same, thrombosis of superficial femoral artery stents at the end of the akbar Procedure Date Date Of Procedure: 12/15/24 Procedure: PROCEDURE: Diagnostic aortogram, diagnostic arteriogram right, atherectomy and drug-coated angioplasty followed by drug-coated stenting of the entire right superficial femoral artery, angioplasty right posterior tibial artery, angioplasty right anterior tibial artery, intravascular sound of the arteries of the right leg, placement of EKOS thrombolytic catheter for directed thrombolysis of the right superficial femoral artery stents NARRATIVE: The patient was taken to the operative suite and placed in the supine position. The left groin and entire right leg were prepped and draped in sterile fashion. Patient was given intravenous sedation supervised by myself. Timeout for the procedure obtained. Ultrasound used to identify the femoral artery in the left groin and the skin overlying it infiltrated with 0.5% Marcaine. Ultrasound used to guide puncture of the left femoral artery and a 0.012 inch guidewire placed. Incision made over the guidewire at the skin edge with a #11 knife blade and the micro sheath placed over the guidewire into the femoral artery. Small wire exchanged for a 0.035 inch a Advantage Glidewire and the micro sheath exchanged for a 5 Iranian vascular sheath. Patient given 5000 units of intravenous heparin. Omni catheter placed over the guidewire into the aorta and power injector used to perform aortogram showing patent aorta and iliac arteries. The Omni catheter was then used to direct the guidewire down the right common iliac artery to the distal right external iliac artery. The Omni catheter exchanged for a Stratford catheter and sequential arteriograms performed of the right leg showing completely occluded right superficial femoral artery with reconstitution of the popliteal artery and severe disease of the right anterior tibial and right posterior tibial arteries proximally . The Stratford catheter removed and over the guidewire the 5 Iranian sheath was exchanged for a 7 Iranian Catpult Sheath which was parked right distal external iliac artery . Stratford catheter and the 0.035 guidewire used to traverse the arteries of the right leg ultimately ending in the right anterior tibial artery all the way to the foot . This was selective catherization . Stratford catheter used to exchange 0.035 inch wire for a 0.014 inch Thruway wire. Over this wire we placed the Jetstream device and performed atherectomy of the entire right superficial femoral artery and proximal right anterior tibial artery .Because of the complete occlusion I felt that we should stent the entire right superficial artery. We used Kalpana 6 mm x 150 mm stents x 2, Kalpana 6 mm x 100 mm stent x 1 and finally a 6 mm x 40 mm Kalpana stent x 1. All the stents were used to line the entire superficial artery from its takeoff to the popliteal artery. These were all then balloon dilated with a 6 mm Lucius balloon. Then over the wire into the anterior tibial artery ,which was severely diseased we placed a [place] 2.5 x 220 mm balloon and balloon dilated the anterior tibial artery 1 minute. The balloon removed and the wire removed and the wire placed down the posterior tibial artery all the way to the ankle. This was the second selective catheterization. Jetstream used to perform atherectomy of the proximal right posterior tibial artery. We then balloon dilated the right posterior tibial artery with the [place] 2.5 mm x 220 mm balloon for 1 minute. Repeat arteriogram showed lack of flow through the stents in the right superficial femoral artery. We balloon dilated this a couple of times but could not get good flow going. We then placed over this wire and OPTi cross intravascular ultrasound probe showing thrombus in the stents of the right superficial femoral artery and in the takeoff of the anterior arterial and posterior tibial arteries. The 0.014 inch wire was already down the right posterior tibial artery. Stratford cath used exchanged for a 0.035 inch advantage Glidewire and Stratford catheter removed. Over the guidewire we placed the outer sheath of the EKOS thrombolytic catheter, remove the wire and then placed the inner core all the way into the takeoff of the posterior tibial artery. This was additional selective catheterization. The catheter secured to the skin with a silk suture. Dressings applied. Patient bolused with 3 mg of tPA through the drug port and a drip of 1 mg/h started which we will continue for 24 hours. Normal saline at 30 cc/h placed through the coolant port. Patient will be given subcutaneous Lovenox. Dressings applied and the patient taken to intensive care unit for continued directed thrombolysis . Type of Anesthesia: Local (0.5% Marcaine) Anesthesia Comment: plus MAC Findings: Completely occluded right superficial femoral artery ,disease of significance right anterior tibial and right posterior tibial arteries, thrombosis in the stent to the right superficial femoral artery requiring placement EKOS catheter for directed thrombolysis Type of Fluids Used:: Lactated Ringers Total Amount of Fluid Infused:: 1200cc Urine output: 150 cc EBL: 100cc Hardware: Kalpana stents, 6 x 150 mm x 2, 6 mm x 40 mm x 1 and 6 mm x 120 mm x 1, all deployed in the right superficial femoral artery Complications:: Thrombosis of the stents of the right superficial femoral artery at the end of the case Needle/Sponge Count:: correct Disposition/Condition: Pt. tolerated procedure without difficulty. Taken to the CCU for directed thrombolysis with tPA of the right leg, in stable condition.
[2024-12-17] MEDS: NS 1,000 ML IV 1,000 ML ONE (11:24)
[2024-12-17] MEDS: DUONEB 0.5 MG/3 MG (3 mL) NEB ONE (11:28)
[2024-12-17] MEDS: ANCEF VIAL 1 GRAM ONE (11:59)
[2024-12-17] MEDS: NS 100 ML IV 100 ML ONE (11:59)
[2024-12-17] MEDS: NS 1,000 ML IV 400 ML IV PRN (12:00)
[2024-12-17] MEDS: PEPCID 20 MG VIAL IVP PRN (12:02)
[2024-12-17] MEDS: REGLAN INJ 10 MG VIAL IVP PRN (12:03)
[2024-12-17] MEDS: DIPRIVAN VIAL 20 ML ONE (12:04)
[2024-12-17] MEDS: VERSED ONE (12:04)
[2024-12-17] MEDS: REGLAN INJ 10 MG VIAL ONE (12:04)
[2024-12-17] MEDS ORDERED: PRECEDEX INJ VIAL ONE (12:04)
[2024-12-17] MEDS: ZOFRAN INJ 4 MG VIAL ONE (12:04)
[2024-12-17] MEDS: ANCEF VIAL 1 GRAM IV PRN (12:04)
[2024-12-17] MEDS: OFIRMEV IV 1000 MG VIAL 1,000 MG/100 ML VIAL IV ONE (12:04)
[2024-12-17] MEDS ORDERED: XYLOCAINE 2 % (PLAIN) ONE (12:04)
[2024-12-17] MEDS: PEPCID 20 MG VIAL ONE (12:04)
[2024-12-17] MEDS ORDERED: KETAMINE HCL ONE (12:04)
[2024-12-17] MEDS: FENTANYL VIAL INJ 100 mcg ONE (12:04)
[2024-12-17] MEDS: VERSED IVP PRN (12:10)
[2024-12-17] MEDS ORDERED: KETAMINE HCL PRN (12:11)
[2024-12-17] MEDS: PRECEDEX INJ VIAL IVP PRN (12:11)
[2024-12-17] MEDS: DIPRIVAN VIAL 100 ML IVP PRN (12:11)
[2024-12-17] MEDS ORDERED: XYLOCAINE 2 % (PLAIN) PRN (12:11)
[2024-12-17] MEDS: DECADRON INJ ONE (12:13)
[2024-12-17 12:14] LABS: ALANINE AMINOTRANSFERASE 21 Units/L (12-78); ALBUMIN 2.6 g/dL (3.4-5.0); ALKALINE PHOSPHATASE 67 Units/L (46-116); ASPARTATE AMINO TRANSFERASE 29 Units/L (15-37); BLOOD UREA NITROGEN 22 mg/dL (7-18); CALCIUM 8.5 mg/dL (8.5-10.1); CARBON DIOXIDE 26.6 mmol/L (21-32); CHLORIDE 108 mmol/L (98-107); COR CA(FOR HYPOALB) 9.6 mg/dL (8.5-10.1); COR NA(FOR HYPERGLY) 144 mmol/L (136-145); CREATININE 0.91 mg/dL (0.70-1.30); GLUCOSE 122 mg/dL (65-99); POTASSIUM 4.8 mmol/L (3.5-5.1); SODIUM 143 mmol/L (136-145); TOTAL PROTEIN 5.9 g/dL (6.4-8.2); eGFR NON BLACK RACES > 60 (>60)
[2024-12-17] MEDS: DECADRON INJ IVP PRN (12:16)
[2024-12-17] MEDS: OFIRMEV IV 1000 MG VIAL 1,000 MG/100 ML VIAL IV PRN (12:18)
[2024-12-17] MEDS: NEO-SYNEPHRINE INJ ONE (12:26)
[2024-12-17] MEDS: MARCAINE 0.5% ONE (12:29)
[2024-12-17] MEDS: HEPARIN 1,000 UNIT/500 ML-NS 3,000 UNIT/1,500 ML IV.SOLN ONE (12:29)
[2024-12-17] MEDS: VISIPAQUE 100 ML ONE (12:29)
[2024-12-17] MEDS: FENTANYL VIAL INJ 100 mcg IVP PRN (12:37)
[2024-12-17] MEDS: NEO-SYNEPHRINE INJ IVP PRN (12:39)
--- NOTE | 2024-12-17 12:51 | OR.IMMED ---
IMMEDIATE POST-OP NOTE Immediate Post-Op Note Date of surgery/procedure: 12/17/24 Pre-Op Diagnosis: Thrombosis of stent right superficial femoral artery Post-Op Diagnosis: Resolved Procedure: Arteriogram right lower extremity, intra vascular ultrasound right lower extremity arterial structures Description of Procedure: dictated Surgeon/Distribution Coordinator: Alicja Findings: Three-vessel runoff. No thrombosis of any of the stents or inaja vessels right leg Estimated Blood Loss: 50 cc Complications: none Discharge Progress Notes: To the CCU. Discontinue Rosa. Probably discharge home tomorrow ,monitor hemoglobin
[2024-12-18 05:39] LABS: NEUTROPHILS # (AUTO) 6.5 x10^3/uL (2.2-4.8); NEUTROPHILS % (AUTO) 73.6 % (42.0-75.0)
[2024-12-18 05:45] LABS: BASOPHILS % (AUTO) 0.4 % (0.2-1.0); EOSINOPHILS % (AUTO) 0.1 % (0.9-2.9); LYMPHOCYTES % (AUTO) 10.9 % (21.0-51.0); MEAN CORPUSCULAR HEMOGLOBIN 33.2 pg (27.0-34.0); MEAN CORPUSCULAR HGB CONC 34.5 g/dL (33.0-35.0); MEAN CORPUSCULAR VOLUME 96.3 fL (80.0-100.0); MEAN PLATELET VOLUME 8.8 fL (7.4-11.0); MONOCYTES # (AUTO) 1.3 x10^3/uL (0.3-0.8); PLATELET COUNT 192 X10^3/uL (150.0-450.0); RED BLOOD COUNT 1.88 X10^6/uL (4.7-6.0); RED CELL DISTRIBUTION WIDTH 15.1 % (11.6-16.5); WHITE BLOOD COUNT 8.8 X10^3/uL (3.6-10.0)
[2024-12-18 05:50] LABS: HEMATOCRIT 18.1 % (42.0-54.0); HEMOGLOBIN 6.2 g/dL (13.5-18.0)
[2024-12-18 05:51] LABS: BLOOD UREA NITROGEN 23 mg/dL (7-18); CALCIUM 8.6 mg/dL (8.5-10.1); CARBON DIOXIDE 26.9 mmol/L (21-32); CHLORIDE 107 mmol/L (98-107); COR NA(FOR HYPERGLY) 142 mmol/L (136-145); CREATININE 0.85 mg/dL (0.70-1.30); GLUCOSE 116 mg/dL (65-99); POTASSIUM 4.9 mmol/L (3.5-5.1); SODIUM 142 mmol/L (136-145); eGFR NON BLACK RACES > 60 (>60)
--- NOTE | 2024-12-18 23:37 | NOTE.SOAP ---
Soap Note Note for Day of Date of Exam: 12/18/24 Subjective Data Subjective Data: Status post revascularization of the right leg with complication of thrombosis of the previously placed superficial femoral artery stents of the right leg. Patient treated with overnight thrombolysis directed with tPA. Patient taken back to the operating suite yesterday and repeat arteriogram showed excellent flow throughout the entire right leg this was confirmed with intra vas ultrasound. Right leg remains warm with excellent Doppler signals in the posterior tibial and dorsalis pedis arteries. Patient heavy on tPA hemoglobin dropped to 6.2. Patient to receive 2 units of blood but has some antibodies making difficult to type and cross the blood. Will be given when that has been completed Objective Data Temperature: 98.2 F Pulse Rate: 82 Respiratory Rate: 33 Blood Pressure: 124/57 O2 Sat by Pulse Oximetry: 96 Objective Data: Right foot remains warm with pain resolved and excellent Doppler signals distally Assessment Assessment: Status post revascularization of the right leg. See above. Hemoglobin 6.2. Will be transfused when blood is able to be crossmatched Plan Plan: As above
[2024-12-19 05:19] LABS: EOSINOPHILS # (AUTO) 0.2 x10^3/uL (0.0-0.2); LYMPHOCYTES # (AUTO) 1.3 X10^3/uL (1.3-2.9); MONOCYTES # (AUTO) 1.2 x10^3/uL (0.3-0.8)
[2024-12-19 05:24] LABS: BASOPHILS % (AUTO) 0.4 % (0.2-1.0); EOSINOPHILS % (AUTO) 2.1 % (0.9-2.9); LYMPHOCYTES % (AUTO) 14.3 % (21.0-51.0); MEAN CORPUSCULAR HEMOGLOBIN 34.3 pg (27.0-34.0); MEAN CORPUSCULAR HGB CONC 34.4 g/dL (33.0-35.0); MEAN CORPUSCULAR VOLUME 99.7 fL (80.0-100.0); MONOCYTES % (AUTO) 13.4 % (0.0-13.0); NEUTROPHILS # (AUTO) 6.4 x10^3/uL (2.2-4.8); NEUTROPHILS % (AUTO) 69.8 % (42.0-75.0); PLATELET COUNT 223 X10^3/uL (150.0-450.0); RED BLOOD COUNT 1.88 X10^6/uL (4.7-6.0); RED CELL DISTRIBUTION WIDTH 15.2 % (11.6-16.5); WHITE BLOOD COUNT 9.2 X10^3/uL (3.6-10.0)
[2024-12-19 06:23] LABS: HEMOGLOBIN 6.5 g/dL (13.5-18.0)
[2024-12-19 06:24] LABS: BAND NEUTROPHILS % 3 % (0-10); HEMATOCRIT 18.8 % (42.0-54.0); METAMYELOCYTES % 1; MYELOCYTES % 1; PLATELET MORPHOLOGY COMMENT NORMAL (NORMAL)
[2024-12-19] MEDS ORDERED: NS 500 ML IV 500 ML IV ONE (11:48)
[2024-12-19] MEDS: NS 500 ML IV 500 ML IV SCH (12:22)
[2024-12-19 22:34] LABS: HEMATOCRIT 25.3 % (42.0-54.0)
[2024-12-19 22:40] LABS: ALANINE AMINOTRANSFERASE 28 Units/L (12-78); ALBUMIN 2.7 g/dL (3.4-5.0); ALKALINE PHOSPHATASE 85 Units/L (46-116); ASPARTATE AMINO TRANSFERASE 29 Units/L (15-37); BLOOD UREA NITROGEN 19 mg/dL (7-18); CALCIUM 8.5 mg/dL (8.5-10.1); CARBON DIOXIDE 28.3 mmol/L (21-32); CHLORIDE 102 mmol/L (98-107); COR CA(FOR HYPOALB) 9.5 mg/dL (8.5-10.1); COR NA(FOR HYPERGLY) 140 mmol/L (136-145); GLUCOSE 159 mg/dL (65-99); POTASSIUM 4.4 mmol/L (3.5-5.1); SODIUM 139 mmol/L (136-145); TOTAL PROTEIN 6.5 g/dL (6.4-8.2); eGFR NON BLACK RACES > 60 (>60)
[2024-12-19 22:47] LABS: HEMOGLOBIN 8.6 g/dL (13.5-18.0)
--- NOTE | 2024-12-19 23:34 | NOTE.SOAP ---
Soap Note Note for Day of Date of Exam: 12/19/24 Subjective Data Subjective Data: Blood for transfusion finally available despite multiple antibodies. [place] actually gone up to 6.5. Postprocedure hemoglobin after 2 units 8.6 g Objective Data Temperature: 98.6 F Pulse Rate: 86 Respiratory Rate: 41 Blood Pressure: 132/63 O2 Sat by Pulse Oximetry: 99 Objective Data: All puncture sites healing with no hematoma. Right foot warm with excellent Doppler signals at the ankle all Assessment Assessment: Status post revascularization of the right leg. Required directed thrombolysis in this because his hemoglobin dropped. Received 2 units of blood . Blood loss probably due to the thrombolysis. Post transfusion hemoglobin is 8.6 Plan Plan: Reassess in the morning. Probably discharge home tomorrow
[2024-12-20 00:41] VITALS: TEMP 97.8
[2024-12-20 14:29] VITALS: PULSE 83; O2SAT 94
[2024-12-20 16:29] VITALS: BP 126/56; RESP 19
--- NOTE | 2024-12-20 16:58 | W.DIS.FURT ---
Summary of Discharge Discharge Summary of Date Date of Exam: 12/20/24 Admission Date Date of Admission: 12/15/24 Admission Diagnosis Hospital Course: This is a this is a 59-year-old male with critical ischemia of the right leg who underwent atherectomy and stenting of the entire right superficial femoral artery on December 15. At that time he had thrombosis of the stents of unknown etiology. An EKOS thrombolytic directed catheter was placed and he underwent thrombolysis over 24 hours and was taken back to the operating suite on December 17 where repeat arteriogram showed complete resolution of the clot which was confirmed with intra vascular ultrasound. His legs remain warm with excellent biphasic Doppler signals at the right ankle. We were planning on discharge but due to the thrombolysis hemoglobin dropped to 6.2, and did rise a 6.5 the following day. He received 2 units of blood but it took some time to get the blood available because of multiple antibodies. Post transfusion his hemoglobin is 8.6. He is doing well. He will be discharged on usual medications including Xarelto and aspirin. He also will be given prescription for Percocet, 5 mg tablets 1 every 6 hours as needed pain. 3 weeks prior the patient had arterial intervention of the left leg with atherectomy and drug-coated balloon angioplasty of the left superficial femoral artery. Vital Signs: Vital Signs (72 hours) 12/18/24 23:37 12/19/24 23:34 12/17/24 17:00 Temperature 98.2 F 98.6 F Pulse Rate 82 86 92 H Respiratory Rate 33 H 41 H 20 Blood Pressure 124/57 132/63 O2 Sat by Pulse Oximetry 96 99 96 Oxygen Delivery Method Oxygen Flow Rate FIO2% 12/17/24 17:01 12/17/24 17:01 12/17/24 18:12 Temperature 98.5 F Pulse Rate 91 H Respiratory Rate 22 18 Blood Pressure 133/64 O2 Sat by Pulse Oximetry 95 Oxygen Delivery Method Oxygen Flow Rate FIO2% 12/17/24 18:00 12/17/24 18:01 12/17/24 18:01 Temperature 99.5 F Pulse Rate 96 H 94 H Respiratory Rate 23 25 H Blood Pressure 114/55 O2 Sat by Pulse Oximetry 97 96 Oxygen Delivery Method Oxygen Flow Rate FIO2% 12/17/24 19:00 12/17/24 19:00 12/17/24 19:00 Temperature Pulse Rate 92 H Respiratory Rate 21 Blood Pressure 115/57 O2 Sat by Pulse Oximetry 96 Oxygen Delivery Method Nasal Cannula Oxygen Flow Rate 3 FIO2% 12/17/24 20:06 12/17/24 20:06 12/17/24 21:00 Temperature 98.6 F Pulse Rate 94 H Respiratory Rate 25 H Blood Pressure 109/53 125/58 O2 Sat by Pulse Oximetry 96 Oxygen Delivery Method Oxygen Flow Rate FIO2% 12/17/24 21:00 12/17/24 22:00 12/17/24 22:01 Temperature Pulse Rate 98 H 96 H Respiratory Rate 27 H 28 H Blood Pressure 107/58 O2 Sat by Pulse Oximetry 94 L 95 Oxygen Delivery Method Oxygen Flow Rate FIO2% 12/17/24 21:13 12/17/24 21:13 12/17/24 23:00 Temperature Pulse Rate 91 H 91 H Respiratory Rate 26 H Blood Pressure O2 Sat by Pulse Oximetry 94 L 95 Oxygen Delivery Method Nasal Cannula Oxygen Flow Rate 3 FIO2% 32 12/17/24 23:01 12/18/24 00:10 12/18/24 00:10 Temperature 98.8 F Pulse Rate 102 H Respiratory Rate 24 Blood Pressure 126/58 126/60 O2 Sat by Pulse Oximetry 96 Oxygen Delivery Method Oxygen Flow Rate FIO2% 12/18/24 01:00 12/18/24 02:00 12/18/24 03:00 Temperature Pulse Rate 88 89 89 Respiratory Rate 24 26 H 28 H Blood Pressure O2 Sat by Pulse Oximetry 94 L 98 97 Oxygen Delivery Method Oxygen Flow Rate FIO2% 12/18/24 04:00 12/18/24 04:00 12/18/24 07:00 Temperature 98.5 F Pulse Rate 90 Respiratory Rate 27 H Blood Pressure 128/60 O2 Sat by Pulse Oximetry 92 L Oxygen Delivery Method Nasal Cannula Oxygen Flow Rate 2 FIO2% 12/18/24 05:00 12/18/24 06:00 12/18/24 07:00 Temperature Pulse Rate 89 94 H 88 Respiratory Rate 26 H 29 H 27 H Blood Pressure O2 Sat by Pulse Oximetry 89 L 92 L 90 L Oxygen Delivery Method Oxygen Flow Rate FIO2% 12/18/24 08:00 12/18/24 08:00 12/18/24 08:51 Temperature 98.5 F Pulse Rate 97 H Respiratory Rate 26 H Blood Pressure 122/58 129/58 O2 Sat by Pulse Oximetry 84 L Oxygen Delivery Method Oxygen Flow Rate FIO2% 12/18/24 08:51 12/18/24 09:00 12/18/24 09:58 Temperature Pulse Rate 107 H 105 H Respiratory Rate 34 H 34 H Blood Pressure O2 Sat by Pulse Oximetry 92 L 91 L Oxygen Delivery Method Nasal Cannula Oxygen Flow Rate 2 FIO2% 28 12/18/24 09:59 12/18/24 12:00 12/18/24 16:00 Temperature 98.4 F 97.9 F Pulse Rate 96 H 95 H 97 H Respiratory Rate 29 H 32 H Blood Pressure 129/58 117/59 O2 Sat by Pulse Oximetry 95 94 L 97 Oxygen Delivery Method Room Air Oxygen Flow Rate FIO2% 12/18/24 19:00 12/18/24 12:01 12/18/24 16:00 Temperature Pulse Rate Respiratory Rate Blood Pressure 129/58 120/56 O2 Sat by Pulse Oximetry Oxygen Delivery Method Nasal Cannula Oxygen Flow Rate 2 FIO2% 12/18/24 16:02 12/18/24 19:00 12/18/24 20:00 Temperature Pulse Rate 98 H 87 Respiratory Rate 37 H 33 H Blood Pressure 117/59 O2 Sat by Pulse Oximetry 92 L 100 Oxygen Delivery Method Oxygen Flow Rate FIO2% 12/18/24 20:00 12/18/24 20:00 12/18/24 20:00 Temperature 98.2 F Pulse Rate 82 Respiratory Rate Blood Pressure 124/57 O2 Sat by Pulse Oximetry 96 Oxygen Delivery Method Nasal Cannula Oxygen Flow Rate 2 FIO2% 12/18/24 21:00 12/18/24 22:00 12/18/24 23:00 Temperature Pulse Rate 90 87 90 Respiratory Rate 28 H 27 H 33 H Blood Pressure O2 Sat by Pulse Oximetry 95 93 L 94 L Oxygen Delivery Method Oxygen Flow Rate FIO2% 12/19/24 00:00 12/19/24 00:00 12/19/24 01:00 Temperature 98.3 F Pulse Rate 85 86 Respiratory Rate 36 H 31 H Blood Pressure 126/58 O2 Sat by Pulse Oximetry 96 96 Oxygen Delivery Method Oxygen Flow Rate FIO2% 12/19/24 02:00 12/19/24 03:00 12/19/24 04:00 Temperature 98.6 F Pulse Rate 86 88 83 Respiratory Rate 32 H 35 H 26 H Blood Pressure O2 Sat by Pulse Oximetry 97 96 96 Oxygen Delivery Method Oxygen Flow Rate FIO2% 12/19/24 04:00 12/19/24 05:00 12/19/24 08:59 Temperature Pulse Rate 81 Respiratory Rate 26 H Blood Pressure 132/61 O2 Sat by Pulse Oximetry 96 Oxygen Delivery Method Nasal Cannula Oxygen Flow Rate 2 FIO2% 28 12/19/24 08:40 12/19/24 07:00 12/19/24 06:00 Temperature Pulse Rate 94 H 87 Respiratory Rate 20 Blood Pressure O2 Sat by Pulse Oximetry 97 96 Oxygen Delivery Method Nasal Cannula Oxygen Flow Rate 2 FIO2% 12/19/24 07:00 12/19/24 08:00 12/19/24 08:01 Temperature Pulse Rate 80 98 H 97 H Respiratory Rate 19 17 19 Blood Pressure O2 Sat by Pulse Oximetry 97 95 94 L Oxygen Delivery Method Oxygen Flow Rate FIO2% 12/19/24 08:01 12/19/24 09:00 12/19/24 09:31 Temperature Pulse Rate 98 H 94 H Respiratory Rate 20 20 Blood Pressure 197/78 O2 Sat by Pulse Oximetry 94 L 84 L Oxygen Delivery Method Oxygen Flow Rate FIO2% 12/19/24 09:31 12/19/24 10:00 12/19/24 11:00 Temperature Pulse Rate 90 95 H Respiratory Rate 19 18 Blood Pressure 116/56 O2 Sat by Pulse Oximetry 87 L 94 L Oxygen Delivery Method Oxygen Flow Rate FIO2% 12/19/24 12:00 12/19/24 12:00 12/19/24 12:23 Temperature Pulse Rate 91 H 92 H Respiratory Rate 20 20 Blood Pressure 127/60 O2 Sat by Pulse Oximetry 95 95 Oxygen Delivery Method Oxygen Flow Rate FIO2% 12/19/24 12:23 12/19/24 12:51 12/19/24 12:51 Temperature Pulse Rate 108 H Respiratory Rate 21 Blood Pressure 123/60 126/58 O2 Sat by Pulse Oximetry 94 L Oxygen Delivery Method Oxygen Flow Rate FIO2% 12/19/24 13:00 12/19/24 13:56 12/19/24 13:56 Temperature Pulse Rate 106 H 96 H Respiratory Rate 20 18 Blood Pressure 116/55 O2 Sat by Pulse Oximetry 93 L 96 Oxygen Delivery Method Oxygen Flow Rate FIO2% 12/19/24 14:00 12/19/24 15:00 12/19/24 15:11 Temperature Pulse Rate 97 H 83 Respiratory Rate 19 20 Blood Pressure 125/59 O2 Sat by Pulse Oximetry 95 94 L Oxygen Delivery Method Oxygen Flow Rate FIO2% 12/19/24 15:11 12/19/24 16:00 12/19/24 16:01 Temperature Pulse Rate 90 89 Respiratory Rate 20 19 Blood Pressure 114/83 O2 Sat by Pulse Oximetry 97 94 L Oxygen Delivery Method Oxygen Flow Rate FIO2% 12/19/24 16:01 12/19/24 17:00 12/19/24 18:00 Temperature 98.7 F Pulse Rate 94 H 89 96 H Respiratory Rate 20 18 Blood Pressure O2 Sat by Pulse Oximetry 96 95 94 L Oxygen Delivery Method Oxygen Flow Rate FIO2% 12/19/24 18:10 12/19/24 18:10 12/19/24 19:00 Temperature Pulse Rate 92 H Respiratory Rate 18 Blood Pressure 123/57 O2 Sat by Pulse Oximetry 96 Oxygen Delivery Method Nasal Cannula Oxygen Flow Rate 2 FIO2% 12/19/24 18:35 12/19/24 18:35 12/19/24 19:00 Temperature Pulse Rate 94 H 80 Respiratory Rate 37 H 28 H Blood Pressure 129/58 O2 Sat by Pulse Oximetry 94 L 95 Oxygen Delivery Method Oxygen Flow Rate FIO2% 12/19/24 19:36 12/19/24 19:36 12/19/24 20:00 Temperature 97.6 F Pulse Rate 86 86 Respiratory Rate 35 H 41 H Blood Pressure 136/60 O2 Sat by Pulse Oximetry 95 96 Oxygen Delivery Method Oxygen Flow Rate FIO2% 12/19/24 20:00 12/19/24 20:11 12/19/24 20:12 Temperature Pulse Rate 83 Respiratory Rate Blood Pressure 132/63 O2 Sat by Pulse Oximetry 99 Oxygen Delivery Method Nasal Cannula Oxygen Flow Rate 2 FIO2% 28 12/19/24 20:40 12/19/24 20:40 12/19/24 21:00 Temperature Pulse Rate 88 89 Respiratory Rate 36 H 38 H Blood Pressure 133/63 O2 Sat by Pulse Oximetry 95 95 Oxygen Delivery Method Oxygen Flow Rate FIO2% 12/19/24 22:00 12/19/24 22:21 12/19/24 22:21 Temperature Pulse Rate 87 87 Respiratory Rate 34 H 35 H Blood Pressure 121/57 O2 Sat by Pulse Oximetry 94 L 93 L Oxygen Delivery Method Oxygen Flow Rate FIO2% 12/19/24 23:00 12/20/24 00:00 12/20/24 00:00 Temperature 97.8 F Pulse Rate 88 85 Respiratory Rate 32 H 36 H Blood Pressure 134/58 O2 Sat by Pulse Oximetry 94 L 95 Oxygen Delivery Method Oxygen Flow Rate FIO2% 12/20/24 01:00 12/20/24 02:00 12/20/24 03:00 Temperature Pulse Rate 86 80 83 Respiratory Rate 39 H 31 H 35 H Blood Pressure O2 Sat by Pulse Oximetry 95 95 95 Oxygen Delivery Method Oxygen Flow Rate FIO2% 12/20/24 04:00 12/20/24 04:00 12/20/24 08:52 Temperature 97.8 F Pulse Rate 84 Respiratory Rate 34 H Blood Pressure 136/63 O2 Sat by Pulse Oximetry 95 Oxygen Delivery Method Nasal Cannula Oxygen Flow Rate 2 FIO2% 28 12/20/24 08:52 12/20/24 07:00 12/20/24 05:00 Temperature Pulse Rate 86 85 Respiratory Rate 20 Blood Pressure O2 Sat by Pulse Oximetry 96 96 Oxygen Delivery Method Nasal Cannula Oxygen Flow Rate 2 FIO2% 12/20/24 06:00 12/20/24 07:00 12/20/24 08:00 Temperature Pulse Rate 91 H 84 Respiratory Rate 18 20 Blood Pressure 133/64 O2 Sat by Pulse Oximetry 94 L 95 Oxygen Delivery Method Oxygen Flow Rate FIO2% 12/20/24 08:00 12/20/24 09:00 12/20/24 10:00 Temperature Pulse Rate 94 H 87 84 Respiratory Rate 17 18 20 Blood Pressure O2 Sat by Pulse Oximetry 94 L 100 93 L Oxygen Delivery Method Oxygen Flow Rate FIO2% 12/20/24 11:00 12/20/24 12:00 12/20/24 12:00 Temperature Pulse Rate 91 H Respiratory Rate 20 Blood Pressure 136/63 136/63 O2 Sat by Pulse Oximetry 95 Oxygen Delivery Method Oxygen Flow Rate FIO2% 12/20/24 12:00 12/20/24 13:00 12/20/24 14:00 Temperature Pulse Rate 86 89 83 Respiratory Rate 18 20 20 Blood Pressure O2 Sat by Pulse Oximetry 96 95 94 L Oxygen Delivery Method Oxygen Flow Rate FIO2% 12/20/24 15:00 12/20/24 16:00 12/20/24 16:01 Temperature Pulse Rate 80 86 83 Respiratory Rate 20 18 19 Blood Pressure O2 Sat by Pulse Oximetry 95 93 L 94 L Oxygen Delivery Method Oxygen Flow Rate FIO2% 12/20/24 16:01 Temperature Pulse Rate Respiratory Rate Blood Pressure 126/56 O2 Sat by Pulse Oximetry Oxygen Delivery Method Oxygen Flow Rate FIO2% Labs: Laboratory Last Values WBC 9.2 X10^3/uL (3.6-10.0) 12/19/24 04:14 RBC 1.88 X10^6/uL (4.7-6.0) L 12/19/24 04:14 Hgb 8.6 g/dL (13.5-18.0) L D 12/19/24 22:15 Hct 25.3 % (42.0-54.0) L 12/19/24 22:15 MCV 99.7 fL (80.0-100.0) 12/19/24 04:14 MCH 34.3 pg (27.0-34.0) H 12/19/24 04:14 MCHC 34.4 g/dL (33.0-35.0) 12/19/24 04:14 RDW 15.2 % (11.6-16.5) 12/19/24 04:14 Plt Count 223 X10^3/uL (150.0-450.0) 12/19/24 04:14 Plt Count Comment Adequate (ADEQUATE) 12/19/24 04:14 MPV 9.0 fL (7.4-11.0) 12/19/24 04:14 Neut % (Auto) 69.8 % (42.0-75.0) 12/19/24 04:14 Lymph % (Auto) 14.3 % (21.0-51.0) L 12/19/24 04:14 [place] % (Auto) 13.4 % (0.0-13.0) H 12/19/24 04:14 Eos % (Auto) 2.1 % (0.9-2.9) 12/19/24 04:14 Baso % (Auto) 0.4 % (0.2-1.0) 12/19/24 04:14 Neut # (Auto) 6.4 x10^3/uL (2.2-4.8) H 12/19/24 04:14 Lymph # (Auto) 1.3 X10^3/uL (1.3-2.9) 12/19/24 04:14 [place] # (Auto) 1.2 x10^3/uL (0.3-0.8) H 12/19/24 04:14 Eos # (Auto) 0.2 x10^3/uL (0.0-0.2) 12/19/24 04:14 Baso # (Auto) 0.0 X10^3/uL (0.0-0.1) 12/19/24 04:14 Absolute Nucleated RBC 0.8 /100WBC 12/19/24 04:14 Total Counted 100 12/19/24 04:14 Neutrophils % (Manual) 74 % (39-76) 12/19/24 04:14 Band Neutrophils % 3 % (0-10) 12/19/24 04:14 Lymphocytes % (Manual) 9 % (13-43) L 12/19/24 04:14 Monocytes % (Manual) 10 % (4-9) H 12/19/24 04:14 Eosinophils % (Manual) 2 % (0-6) 12/19/24 04:14 Metamyelocytes % 1 12/19/24 04:14 Myelocytes % 1 12/19/24 04:14 Nucleated RBCs 4 12/19/24 04:14 Plt Morphology Comment Normal (NORMAL) 12/19/24 04:14 RBC Morphology Normal (NORMAL) 12/19/24 04:14 APTT 36.0 SECONDS (22.9-36.5) 12/17/24 08:55 PTT Comment - 12/17/24 08:55 Fibrinogen 316 mg/dL (239-489) 12/17/24 08:55 Sodium 139 mmol/L (136-145) 12/19/24 22:15 Corrected Sodium 140 mmol/L (136-145) 12/19/24 22:15 Potassium 4.4 mmol/L (3.5-5.1) 12/19/24 22:15 Chloride 102 mmol/L (98-107) 12/19/24 22:15 Carbon Dioxide 28.3 mmol/L (21-32) 12/19/24 22:15 BUN 19 mg/dL (7-18) H 12/19/24 22:15 Creatinine 0.90 mg/dL (0.70-1.30) 12/19/24 22:15 Est GFR (MDRD) Af Amer > 60 (>60) 12/19/24 22:15 Est GFR (MDRD) Non-Af > 60 (>60) 12/19/24 22:15 Glucose 159 mg/dL (65-99) H 12/19/24 22:15 POC Glucose (mg/dL) 148 mg/dL (65-99) H 12/20/24 11:01 Calcium 8.5 mg/dL (8.5-10.1) 12/19/24 22:15 Corrected Calcium 9.5 mg/dL (8.5-10.1) 12/19/24 22:15 Total Bilirubin 0.60 mg/dL (0.2-1.0) 12/19/24 22:15 AST 29 Units/L (15-37) 12/19/24 22:15 ALT 28 Units/L (12-78) 12/19/24 22:15 Alkaline Phosphatase 85 Units/L (46-116) 12/19/24 22:15 B-Natriuretic Peptide 133 pg/mL (0-79) H 12/19/24 22:15 Total Protein 6.5 g/dL (6.4-8.2) 12/19/24 22:15 Albumin 2.7 g/dL (3.4-5.0) L 12/19/24 22:15 Globulin 3.8 g/dL (2.5-4.5) 12/19/24 22:15 Albumin/Globulin Ratio 0.7 Ratio (1.1-2.1) L 12/19/24 22:15 Blood Type A POSITIVE 12/15/24 09:45 Antibody Screen Positive 12/15/24 09:45 Antibody Identification Cold Antibody 12/15/24 09:45 Crossmatch See Detail 12/15/24 09:45 Reason For Visit: CRITICAL ISCHEMIA LEG, PAIN, POST OPERATIVE EKOS Discharge Date Discharge Date: 12/20/24 Discharge Diagnosis All Active Problems (Updated 12/20/24 @ 16:55 by Jassi Helm) Atherosclerosis of [place] arteries of extremities with rest pain, right leg (Acute) Diabetes (Acute) Perirectal abscess (Acute) Foot contusion (Acute) Foot sprain (Acute) Abscess, gluteal, right (Acute) Leukocytosis (leucocytosis) (Acute) Hyperglycemia (Acute) Plan of Treatment: Continue with present treatment and follow up plan. Pt is to keep follow up appointment as instructed and take medications as ordered. Discharge Medications Discharge Medications: No Known Drug Allergies Allergy (Unknown, Unverified 02/27/22 10:32) CONTINUE taking the following medications amlodipine 10 mg tablet 10 mg PO QDAY 12/16/24 [History] famotidine 40 mg tablet 40 mg PO QDAY 12/16/24 [History] pioglitazone 45 mg tablet 45 mg PO QDAY 12/16/24 [History] pregabalin 200 mg capsule 200 mg PO BID 12/16/24 [History] tamsulosin 0.4 mg capsule 0.4 mg PO QDAY 12/16/24 [History] telmisartan 80 mg tablet 80 mg PO QAM 12/16/24 [History] aspirin 81 mg daily Xarelto 2.5 mg po BID Percocet 5 mg , 1 po q 6 hr Prn pain Discharge Disposition Assessment: see hospital course Discharge Plan Discharge Plan Hospital Course: This is a this is a 59-year-old male with critical ischemia of the right leg who underwent atherectomy and stenting of the entire right superficial femoral artery on December 15. At that time he had thrombosis of the stents of unknown etiology. An EKOS thrombolytic directed catheter was placed and he underwent thrombolysis over 24 hours and was taken back to the operating suite on December 17 where repeat arteriogram showed complete resolution of the clot which was confirmed with intra vascular ultrasound. His legs remain warm with excellent biphasic Doppler signals at the right ankle. We were planning on discharge but due to the thrombolysis hemoglobin dropped to 6.2, and did rise a 6.5 the following day. He received 2 units of blood but it took some time to get the blood available because of multiple antibodies. Post transfusion his hemoglobin is 8.6. He is doing well. He will be discharged on usual medications including Xarelto and aspirin. He also will be given prescription for Percocet, 5 mg tablets 1 every 6 hours as needed pain. 3 weeks prior the patient had arterial intervention of the left leg with atherectomy and drug-coated balloon angioplasty of the left superficial femoral artery. Patient Disposition: HOME, SELF-CARE Condition: Stable Health Concerns: Post Hospitalization: new medications and changes needed to prevent readmission or further decline. Pt educated and given instructions on all concerns. Plan of Treatment: Continue with present treatment and follow up plan. Pt is to keep follow up appointment as instructed and take medications as ordered. Assessment: see hospital course Prescription drug monitoring program results: PDMP reviewed and no concerns identified Prescriptions: New aspirin 81 mg capsule 81 mg PO QDAY Qty: 120 0RF Xarelto 2.5 mg tablet 2.5 mg PO BID Qty: 90 0RF oxycodone-acetaminophen [Percocet] 5-325 mg tablet 1 tab PO Q6H MDD 4 PRNQty: 20 0RF Continued famotidine 40 mg tablet 40 mg PO QDAY pioglitazone 45 mg tablet 45 mg PO QDAY tamsulosin 0.4 mg capsule 0.4 mg PO QDAY amlodipine 10 mg tablet 10 mg PO QDAY telmisartan 80 mg tablet 80 mg PO QAM pregabalin 200 mg capsule 200 mg PO BID Follow ups/Referrals Follow ups/Referrals: GRABIEL MANZANARES [Primary Care Provider] - 1 WEEK Instructions Instructions: Endovascular Therapy for Peripheral Vascular Disease: What to Know After Stand Alone Forms: Excuse From Work or School, Find Help Web Site, Post Hospital Follow Up Care
--- NOTE | 2024-12-21 12:05 | DR.OPNOTE ---
OP NOTE Pre-Op Diagnosis: Critical ischemia RLW, s/parterial intervention, complicated by thrombosis Post-Op Diagnosis: same , thrombosis resolved Procedure Date Date Of Procedure: 12/17/24 Procedure: PROCEDURE: Aortogram, arteriogram right lower extremity, intravascular ultrasound of arteries of the right lower extremity NARRATIVE: The patient was taken to the operative suite and placed in the supine position. The sheath in the left groin prepped and draped in sterile fashion as well as the right groin and entire right leg. Patient given intravenous sedation supervised by myself. Timeout for the procedure obtained. The EKOS thrombolytic catheter was removed without difficulty. Patient given subcutaneous Lovenox. Arteriogram carried out through the sheath showing normal flow throughout the entire right superficial femoral artery stents as well as distal outflow. The 0.035 inch wire was placed down and Jay catheter placed over this. 0.035 wire exchanged through the Jay catheter for 0.018 inch wire. We placed intravascular ultrasound probe over the wire and performed intra vascular ultrasound of the arteries of the right leg showing no occlusion, no thrombosis and no significant stenosis or compression. All wires and devices removed . The sheath in the left groin exchanged for Angio-Seal device used to close the puncture of the left femoral artery. Dressing applied. Patient taken back to the critical care unit. Type of Anesthesia: Local (0.5% Marcaine) Anesthesia Comment: Plus MAC Findings: Good arterial flow through the right leg. All thrombosis resolved after tPA directed thrombolysis Type of Fluids Used:: Lactated Ringers EBL: < 50 cc Needle/Sponge Count:: correct Disposition/Condition: Pt. tolerated procedure without difficulty. Taken to [facility] in stable condition.
== END 2024-12-20 16:25 | disposition home or self-care (01) | DRG 271 ==
LOC: SURG1 09:12 → ICU 09:12 → OBSVTOIN 13:58 → INTOOBSV 13:58
PROVIDERS: ADMIT Surgery; ATTEND Surgery
DX: T82.868A Thrombosis due to vascular prosthetic devices, implants and grafts, initial encounter; R06.02 Shortness of breath; I74.3 Embolism and thrombosis of arteries of the lower extremities; R79.1 Abnormal coagulation profile; R73.09 Other abnormal glucose; Z72.0 Tobacco use; Z93.3 Colostomy status; I70.221 Atherosclerosis of native arteries of extremities with rest pain, right leg

== ENCOUNTER 2025-01-12 15:50 | Inpatient (IN) ==
[2025-01-12] MEDS: LASIX IVP ONE (16:37)
--- NOTE | 2025-01-12 16:41 | EKG ---
Test Reason : dyspnea Blood Pressure : */* mmHG Vent. Rate : 87 BPM Atrial Rate : 87 BPM P-R Int : 146 ms QRS Dur : 102 ms QT Int : 336 ms P-R-T Axes : 56 94 -15 degrees QTc Int : 404 ms Sinus rhythm with occasional premature ventricular complexes Rightward axis Possible Inferior infarct , age undetermined Cannot rule out Anterior infarct (cited on or before 19-NOV-2024) Abnormal ECG When compared with ECG of 19-NOV-2024 12:41, premature ventricular complexes are now present Confirmed by Erick Maciel MD ([id number]) on 01/12/2025 5:44:25 PM Referred By: Confirmed By: Erick Maciel MD
[2025-01-12 16:50] LABS: BASOPHILS # (AUTO) 0.3 X10^3/uL (0.0-0.1); BASOPHILS % (AUTO) 2.7 % (0.2-1.0); EOSINOPHILS # (AUTO) 0.4 x10^3/uL (0.0-0.2); EOSINOPHILS % (AUTO) 3.7 % (0.9-2.9); HEMATOCRIT 34.9 % (42.0-54.0); HEMOGLOBIN 11.4 g/dL (13.5-18.0); LYMPHOCYTES # (AUTO) 1.1 X10^3/uL (1.3-2.9); LYMPHOCYTES % (AUTO) 11.3 % (21.0-51.0); MEAN CORPUSCULAR HGB CONC 32.8 g/dL (33.0-35.0); MEAN CORPUSCULAR VOLUME 88.3 fL (80.0-100.0); MEAN PLATELET VOLUME 8.2 fL (7.4-11.0); MONOCYTES # (AUTO) 0.9 x10^3/uL (0.3-0.8); MONOCYTES % (AUTO) 8.9 % (0.0-13.0); NEUTROPHILS # (AUTO) 7.2 x10^3/uL (2.2-4.8); NEUTROPHILS % (AUTO) 73.4 % (42.0-75.0); PLATELET COUNT 379 X10^3/uL (150.0-450.0); RED BLOOD COUNT 3.95 X10^6/uL (4.7-6.0); RED CELL DISTRIBUTION WIDTH 16.5 % (11.6-16.5); WHITE BLOOD COUNT 9.8 X10^3/uL (3.6-10.0)
[2025-01-12 16:57] LABS: INR 1.38 (0.8-1.3)
[2025-01-12 17:05] LABS: ALANINE AMINOTRANSFERASE 18 Units/L (12-78); ALBUMIN 3.2 g/dL (3.4-5.0); ALKALINE PHOSPHATASE 97 Units/L (46-116); ASPARTATE AMINO TRANSFERASE 16 Units/L (15-37); BLOOD UREA NITROGEN 17 mg/dL (7-18); CALCIUM 9.6 mg/dL (8.5-10.1); CARBON DIOXIDE 34.1 mmol/L (21-32); CHLORIDE 100 mmol/L (98-107); COR CA(FOR HYPOALB) 10.2 mg/dL (8.5-10.1); COR NA(FOR HYPERGLY) 142 mmol/L (136-145); CREATINE KINASE 79 Units/L (39-308); CREATININE 1.21 mg/dL (0.70-1.30); GLUCOSE 169 mg/dL (65-99); MAGNESIUM 1.3 mg/dL (2.0-2.9); POTASSIUM 4.2 mmol/L (3.5-5.1); SODIUM 140 mmol/L (136-145); TOTAL PROTEIN 7.8 g/dL (6.4-8.2); eGFR NON BLACK RACES > 60 (>60)
--- NOTE | 2025-01-12 18:32 | DR.EXTPAIN ---
HPI Time seen Time Seen by Provider: 01/12/25 16:24 PCP Primary Care Physician: Pako Complaint/Symptoms Chief Complaint Doctor Comments: 59 yo M, hx of CVT on xarelto, currently being worked up for possible CHF, states he had an echo last wk, has not received the results yet. Today, pt c/o increasing periph edema over the past month, worse the past 4-5 days, accomp by orthopnea. Denies chest pain. Denies fever. Chief Complaint:: Pt states he is having some swelling and pain in BLEs "since my vascular surgery" in November 2024. He states walking is very painful, "I can't hardly walk", blisters on feet that are fluid-filled, bust and then turn into sores; all since vascular surgery. Pt states he is also SOB at rest and with minimal exertion; Pt observed to intermittently sit in tripod position and sit back in WC. States he can breathe better sitting straight up. Pt denies home O2 use. Dr. Manzanares increased pt Lasix to 80mg PO QD at office last week. Pt states he was ambulatory prior to vascular surgery. Pt states he has recently had to sleep in his recliner d/t SOB. COVID-19 Coronavirus risk:travel/contact w/high risk person: No Has patient experienced Coronavirus symptoms: Yes Coronavirus symptoms experienced: Coughing and Shortness of Breath Source History Provided: Patient Mode of arrival Mode of Arrival: Wheelchair Timing Onset of Chief Complaint: 01/12/25 PMH PMH Past Medical History: Yes Past Medical History: Coronary Artery Disease, Diabetes, Dyslipidemia, GERD and Hypertension Past Medical History Comment: PAD, morbid obesity Past Surgical History: Yes Surgical History: Appendectomy, Tonsillectomy and Other Family History History of Family Medical Conditions: Yes Family Medical History: Diabetes Mellitus, Cancer, [place], Coronary Artery Disease and Hypertension Social History Does patient currently use any type of tobacco product: Yes Have you used tobacco products in the last 12 months: Yes Type of Tobacco Use: Cigarettes Does any household member use tobacco: No Alcohol Use: None Do you use any recreational Drugs:: No Lives Where: Home Travel Risk Coronavirus risk:travel/contact w/high risk person: No Has patient experienced Coronavirus symptoms: Yes Coronavirus symptoms experienced: Coughing and Shortness of Breath Infectious screening In the last 2 months have you had wt loss of >10#?: NO Have you had fever, night sweats or hemotysis?: No Have you traveled outside the country in the last 6 months?: No Isolation: Standard ROS Review of Systems Constitutional: negative Chills or Fever Respiratoy: Short of Breath Cardiovascular: Edema; negative Chest Pain All Other Systems: Reviewed and Negative PE Vital Signs Vitals: Vital Signs Temperature 98.2 F Pulse Rate 85 Pulse Rate 85 Pulse Rate 87 Pulse Rate 93 Pulse Rate 88 Pulse Rate 93 Pulse Rate 86 Pulse Rate 87 Pulse Rate 85 Pulse Rate 86 Pulse Rate 84 Respiratory Rate 34 Respiratory Rate 22 Blood Pressure 137/80 Blood Pressure 142/65 Blood Pressure 138/86 Blood Pressure 151/66 Blood Pressure 113/53 O2 Sat by Pulse Oximetry 92 O2 Sat by Pulse Oximetry 90 O2 Sat by Pulse Oximetry 90 O2 Sat by Pulse Oximetry 92 O2 Sat by Pulse Oximetry 91 O2 Sat by Pulse Oximetry 90 O2 Sat by Pulse Oximetry 90 O2 Sat by Pulse Oximetry 92 O2 Sat by Pulse Oximetry 93 O2 Sat by Pulse Oximetry 92 O2 Sat by Pulse Oximetry 92 O2 Sat by Pulse Oximetry 82 General Limitations: No Limitations General Appearance: Alert, In No Apparent Distress and Other (O2 85% on RA upon arrival, 95% on 2L NC) Head Head Exam: Normal Inspection Eyes Eye exam: Normal Appearance ENT ENT Exam: Normal Exam Neck Neck Exam: Normal Inspection Chest Chest Inspection: Normal Inspection Respiratory Respiratory Exam: Bilateral: Crackles Cardiovascular Cardiovascular Exam: Regular Rate and Normal Rhythm Abdominal Exam Abdominal Exam: Normal Inspection, Normal Bowel Sounds and Soft Extremities Extremities Exam: Edema (3+ pitting edema in bilat lower ext) Back Back Exam: Normal Inspection Neurological Neurological Exam: Alert, Oriented X3 and CN II-XII Intact Psychiatric Psychiatric Exam: Normal Affect and Normal Mood Skin Skin Exam: Warm, Dry, Intact and Normal Color ROR Labs Reviewed Laboratory Results Reviewed?: Yes 01/12/25 16:40 01/12/25 16:40 Laboratory: WBC 9.8 X10^3/uL (3.6-10.0) 01/12/25 16:40 RBC 3.95 X10^6/uL (4.7-6.0) L 01/12/25 16:40 Hgb 11.4 g/dL (13.5-18.0) L 01/12/25 16:40 Hct 34.9 % (42.0-54.0) L 01/12/25 16:40 MCV 88.3 fL (80.0-100.0) 01/12/25 16:40 MCH 29.0 pg (27.0-34.0) 01/12/25 16:40 MCHC 32.8 g/dL (33.0-35.0) L 01/12/25 16:40 RDW 16.5 % (11.6-16.5) 01/12/25 16:40 Plt Count 379 X10^3/uL (150.0-450.0) 01/12/25 16:40 MPV 8.2 fL (7.4-11.0) 01/12/25 16:40 Neut % (Auto) 73.4 % (42.0-75.0) 01/12/25 16:40 Lymph % (Auto) 11.3 % (21.0-51.0) L 01/12/25 16:40 [place] % (Auto) 8.9 % (0.0-13.0) 01/12/25 16:40 Eos % (Auto) 3.7 % (0.9-2.9) H 01/12/25 16:40 Baso % (Auto) 2.7 % (0.2-1.0) H 01/12/25 16:40 Neut # (Auto) 7.2 x10^3/uL (2.2-4.8) H 01/12/25 16:40 Lymph # (Auto) 1.1 X10^3/uL (1.3-2.9) L 01/12/25 16:40 [place] # (Auto) 0.9 x10^3/uL (0.3-0.8) H 01/12/25 16:40 Eos # (Auto) 0.4 x10^3/uL (0.0-0.2) H 01/12/25 16:40 Baso # (Auto) 0.3 X10^3/uL (0.0-0.1) H 01/12/25 16:40 Absolute Nucleated RBC 0.0 /100WBC 01/12/25 16:40 PT 17.1 SECONDS (11.8-14.3) 01/12/25 16:40 INR Target Range - 01/12/25 16:40 INR 1.38 (0.8-1.3) H 01/12/25 16:40 APTT 39.6 SECONDS (22.9-36.5) H 01/12/25 16:40 PTT Comment - 01/12/25 16:40 Sodium 140 mmol/L (136-145) 01/12/25 16:40 Corrected Sodium 142 mmol/L (136-145) 01/12/25 16:40 Potassium 4.2 mmol/L (3.5-5.1) 01/12/25 16:40 Chloride 100 mmol/L (98-107) 01/12/25 16:40 Carbon Dioxide 34.1 mmol/L (21-32) H 01/12/25 16:40 BUN 17 mg/dL (7-18) 01/12/25 16:40 Creatinine 1.21 mg/dL (0.70-1.30) 01/12/25 16:40 Est GFR (MDRD) Af Amer > 60 (>60) 01/12/25 16:40 Est GFR (MDRD) Non-Af > 60 (>60) 01/12/25 16:40 Glucose 169 mg/dL (65-99) H 01/12/25 16:40 Calcium 9.6 mg/dL (8.5-10.1) 01/12/25 16:40 Corrected Calcium 10.2 mg/dL (8.5-10.1) H 01/12/25 16:40 Magnesium 1.3 mg/dL (2.0-2.9) L 01/12/25 16:40 Total Bilirubin 0.50 mg/dL (0.2-1.0) 01/12/25 16:40 AST 16 Units/L (15-37) 01/12/25 16:40 ALT 18 Units/L (12-78) 01/12/25 16:40 Alkaline Phosphatase 97 Units/L (46-116) 01/12/25 16:40 Creatine Kinase 79 Units/L (39-308) 01/12/25 16:40 Troponin I High Sens 7.9 ng/L (4.0-60.0) 01/12/25 16:40 B-Natriuretic Peptide 378 pg/mL (0-79) H 01/12/25 16:40 Total Protein 7.8 g/dL (6.4-8.2) 01/12/25 16:40 Albumin 3.2 g/dL (3.4-5.0) L 01/12/25 16:40 Globulin 4.6 g/dL (2.5-4.5) H 01/12/25 16:40 Albumin/Globulin Ratio 0.7 Ratio (1.1-2.1) L 01/12/25 16:40 Opioid Opioid Risk Tool Age (Quoc box if 16-45): No History of Preadolescent Sexual Abuse: No Total: 0 Total Score Risk Category: Low Risk Copyright: [facility] predicting aberrant behaviors Discharge Plan Diagnosis Discharge Problem: New onset of congestive heart failure, Pulmonary edema, Hypoxia Discharge Plan Patient Disposition: ADMITTED INPATIENT Condition: Stable Prescriptions: No Action famotidine 40 mg tablet 40 mg PO QDAY tamsulosin 0.4 mg capsule 0.4 mg PO QDAY amlodipine 10 mg tablet 10 mg PO QDAY telmisartan 80 mg tablet 80 mg PO QAM pregabalin 200 mg capsule 200 mg PO BID aspirin 81 mg capsule 81 mg PO QDAY Qty: 120 0RF oxycodone-acetaminophen [Percocet] 5-325 mg tablet 1 tab PO Q6H MDD 4 PRNQty: 20 0RF furosemide 40 mg tablet 80 mg PO QAM PRN (Reason: edema) Patient Comments: Pt states Dr. Manzanares increased his lasix to 80 mg QD "last week" carvedilol 12.5 mg tablet 12.5 mg PO BID metformin 1,000 mg tablet 1,000 mg PO BID rivaroxaban [Xarelto] 2.5 mg tablet 7.5 mg PO DAILY Health Concerns: Post Hospitalization: new medications and changes needed to prevent readmission or further decline. Pt educated and given instructions on all concerns. Plan of Treatment: Continue with present treatment and follow up plan. Pt is to keep follow up appointment as instructed and take medications as ordered. Orders to Discharge Patient Discharge Orders: Transfer (Routine); Ordered 01/12/25 Ordered By: Hayden Contreras Follow ups/Referrals Follow ups/Referrals: GRABIEL MANZANARES [Primary Care Provider] - 3 days Instructions Stand Alone Forms: Find Help Web Site, Post Hospital Follow Up Care ADDITIONAL NOTES Additional Notes Additional Notes: Pt admitted to Dr Rodriguez
--- NOTE | 2025-01-12 19:40 | EKG ---
Test Reason : dyspnea Blood Pressure : */* mmHG Vent. Rate : 90 BPM Atrial Rate : 91 BPM P-R Int : 148 ms QRS Dur : 94 ms QT Int : 342 ms P-R-T Axes : 30 71 -4 degrees QTc Int : 418 ms Normal sinus rhythm Cannot rule out Inferior infarct (cited on or before 19-NOV-2024) Abnormal ECG When compared with ECG of 12-JAN-2025 16:36, premature ventricular complexes are no longer present Confirmed by Erick Maciel MD ([id number]) on 01/13/2025 5:20:44 AM Referred By: Confirmed By: Erick Maciel MD
[2025-01-12 19:41] VITALS: BMI 41.3
[2025-01-12] MEDS: MAG-OX TAB PO SCH (20:29)
[2025-01-12] MEDS ORDERED: CONSULT PHARMACY - POTASSIUM & MAGNESIUM XX SCH (21:00)
[2025-01-12] MEDS: COREG TAB 12.5 MG PO SCH (21:04)
[2025-01-13 05:19] LABS: BASOPHILS % (AUTO) 0.5 % (0.2-1.0); EOSINOPHILS # (AUTO) 0.3 x10^3/uL (0.0-0.2); EOSINOPHILS % (AUTO) 3.5 % (0.9-2.9); HEMATOCRIT 31.8 % (42.0-54.0); HEMOGLOBIN 10.6 g/dL (13.5-18.0); LYMPHOCYTES % (AUTO) 12.7 % (21.0-51.0); MEAN CORPUSCULAR HGB CONC 33.2 g/dL (33.0-35.0); MEAN CORPUSCULAR VOLUME 90.6 fL (80.0-100.0); MEAN PLATELET VOLUME 8.3 fL (7.4-11.0); MONOCYTES # (AUTO) 0.8 x10^3/uL (0.3-0.8); MONOCYTES % (AUTO) 10.1 % (0.0-13.0); NEUTROPHILS % (AUTO) 73.2 % (42.0-75.0); PLATELET COUNT 356 X10^3/uL (150.0-450.0); RED BLOOD COUNT 3.52 X10^6/uL (4.7-6.0); RED CELL DISTRIBUTION WIDTH 16.4 % (11.6-16.5); WHITE BLOOD COUNT 8.2 X10^3/uL (3.6-10.0)
[2025-01-13 05:23] LABS: INR 1.19 (0.8-1.3)
[2025-01-13 05:30] LABS: ALANINE AMINOTRANSFERASE 14 Units/L (12-78); ALKALINE PHOSPHATASE 88 Units/L (46-116); ASPARTATE AMINO TRANSFERASE 15 Units/L (15-37); BLOOD UREA NITROGEN 14 mg/dL (7-18); CALCIUM 9.3 mg/dL (8.5-10.1); CARBON DIOXIDE 39.4 mmol/L (21-32); CHLORIDE 101 mmol/L (98-107); CHOLESTEROL 119 mg/dL (0-200); COR CA(FOR HYPOALB) 10.1 mg/dL (8.5-10.1); COR NA(FOR HYPERGLY) 144 mmol/L (136-145); CREATININE 0.98 mg/dL (0.70-1.30); GLUCOSE 145 mg/dL (65-99); HDL CHOLESTEROL 40 mg/dL (40-60); MAGNESIUM 1.6 mg/dL (2.0-2.9); POTASSIUM 4.6 mmol/L (3.5-5.1); SODIUM 143 mmol/L (136-145); TOTAL PROTEIN 7.1 g/dL (6.4-8.2); TRIGLYCERIDES 73 mg/dL (0-150); eGFR NON BLACK RACES > 60 (>60)
[2025-01-13] MEDS: GLUCOPHAGE PO SCH (06:09)
[2025-01-13] MEDS: GLUCOPHAGE ONE (07:25)
--- NOTE | 2025-01-13 08:09 | RAD ---
EXAM:CHEST, 1 VIEWHISTORY:Shortness of Breath;COMPARISON:12/17/2024FINDINGS:The lungs are clear. No pneumothorax or effusion. Elevation of the right hemidiaphragm.Cardiomegaly is present.The bones are unremarkable.Fixation hardware present in the cervical spine.IMPRESSION:1. Cardiomegaly2. Elevated right hemidiaphragmTHIS IS AN ELECTRONICALLY VERIFIED FINAL REPORT01/13/2025 8:06 AM - Electronically signed by Florentin Bradshaw MD
[2025-01-13] MEDS: XARELTO PO SCH (08:25)
[2025-01-13] MEDS: ASPIRIN 81 MG CHEWTAB PO SCH (08:26)
[2025-01-13] MEDS: MICARDIS PO SCH (08:27)
[2025-01-13] MEDS: FLOMAX PO SCH (08:37)
[2025-01-13] MEDS: PEPCID TAB 40 MG PO SCH (08:37)
[2025-01-13] MEDS: NORVASC TAB 10 MG PO SCH (08:37)
[2025-01-13] MEDS: ALBUMIN HUMAN 25%- 100 ML 100 ML IV SCH (10:18)
[2025-01-13] MEDS: LASIX IVP SCH (11:30)
[2025-01-13] MEDS ORDERED: GLUCOPHAGE ONE (15:48)
[2025-01-13] MEDS ORDERED: LASIX IVP SCH (19:00)
[2025-01-13] MEDS ORDERED: SNACK - Diabetic Appropriate PO SCH (20:00)
[2025-01-13] MEDS: COREG TAB 12.5 MG PO SCH (21:12)
[2025-01-14 05:37] LABS: BASOPHILS % (AUTO) 0.6 % (0.2-1.0); EOSINOPHILS # (AUTO) 0.3 x10^3/uL (0.0-0.2); EOSINOPHILS % (AUTO) 3.3 % (0.9-2.9); HEMATOCRIT 33.5 % (42.0-54.0); LYMPHOCYTES # (AUTO) 1.1 X10^3/uL (1.3-2.9); MEAN CORPUSCULAR HEMOGLOBIN 29.2 pg (27.0-34.0); MEAN CORPUSCULAR VOLUME 88.5 fL (80.0-100.0); MEAN PLATELET VOLUME 8.2 fL (7.4-11.0); MONOCYTES # (AUTO) 0.7 x10^3/uL (0.3-0.8); MONOCYTES % (AUTO) 8.4 % (0.0-13.0); NEUTROPHILS # (AUTO) 5.9 x10^3/uL (2.2-4.8); NEUTROPHILS % (AUTO) 73.7 % (42.0-75.0); PLATELET COUNT 346 X10^3/uL (150.0-450.0); RED BLOOD COUNT 3.78 X10^6/uL (4.7-6.0); RED CELL DISTRIBUTION WIDTH 16.4 % (11.6-16.5)
[2025-01-14 05:54] LABS: ALANINE AMINOTRANSFERASE 14 Units/L (12-78); ALBUMIN 3.3 g/dL (3.4-5.0); ALKALINE PHOSPHATASE 91 Units/L (46-116); ASPARTATE AMINO TRANSFERASE 17 Units/L (15-37); BLOOD UREA NITROGEN 17 mg/dL (7-18); CALCIUM 9.5 mg/dL (8.5-10.1); CHLORIDE 101 mmol/L (98-107); COR CA(FOR HYPOALB) 10.1 mg/dL (8.5-10.1); COR NA(FOR HYPERGLY) 142 mmol/L (136-145); CREATININE 1.06 mg/dL (0.70-1.30); GLUCOSE 114 mg/dL (65-99); MAGNESIUM 1.6 mg/dL (2.0-2.9); POTASSIUM 4.5 mmol/L (3.5-5.1); SODIUM 142 mmol/L (136-145); TOTAL PROTEIN 7.4 g/dL (6.4-8.2); eGFR NON BLACK RACES > 60 (>60)
--- NOTE | 2025-01-14 07:43 | RAD ---
EXAM:CHEST, 1 VIEWHISTORY:PULMONARY EDEMA ; CAD, DM, HTN, PAD, GERD SX: APPY, TONSILSCOMPARISON:01/12/2025FINDINGS:The cardiomediastinal silhouette is widened but stable.Hypoventilatory exam without acute airspace disease. Possible congestion. No pneumothorax or effusion.No acute osseous abnormality. ACDF hardware.IMPRESSION:Possible mild congestion.THIS IS AN ELECTRONICALLY VERIFIED FINAL REPORT01/14/2025 7:40 AM - Electronically signed by Pool Baptiste MD
[2025-01-14] MEDS ORDERED: GLUCOPHAGE ONE (08:22)
[2025-01-14] MEDS: LASIX IVP SCH (11:38)
[2025-01-14] MEDS: GLUCOPHAGE ONE (18:04)
[2025-01-14] MEDS: MAG-OX TAB PO SCH (20:13)
[2025-01-15 05:27] LABS: BASOPHILS # (AUTO) 0.1 X10^3/uL (0.0-0.1); BASOPHILS % (AUTO) 1.1 % (0.2-1.0); EOSINOPHILS # (AUTO) 0.3 x10^3/uL (0.0-0.2); EOSINOPHILS % (AUTO) 3.8 % (0.9-2.9); HEMATOCRIT 32.4 % (42.0-54.0); HEMOGLOBIN 10.9 g/dL (13.5-18.0); LYMPHOCYTES # (AUTO) 1.1 X10^3/uL (1.3-2.9); LYMPHOCYTES % (AUTO) 13.8 % (21.0-51.0); MEAN CORPUSCULAR HGB CONC 33.8 g/dL (33.0-35.0); MEAN CORPUSCULAR VOLUME 88.9 fL (80.0-100.0); MEAN PLATELET VOLUME 8.6 fL (7.4-11.0); MONOCYTES # (AUTO) 0.7 x10^3/uL (0.3-0.8); MONOCYTES % (AUTO) 8.7 % (0.0-13.0); NEUTROPHILS # (AUTO) 5.8 x10^3/uL (2.2-4.8); NEUTROPHILS % (AUTO) 72.6 % (42.0-75.0); PLATELET COUNT 344 X10^3/uL (150.0-450.0); RED BLOOD COUNT 3.65 X10^6/uL (4.7-6.0); RED CELL DISTRIBUTION WIDTH 16.5 % (11.6-16.5)
[2025-01-15 05:39] LABS: ALANINE AMINOTRANSFERASE 16 Units/L (12-78); ALBUMIN 3.4 g/dL (3.4-5.0); ALKALINE PHOSPHATASE 91 Units/L (46-116); ASPARTATE AMINO TRANSFERASE 19 Units/L (15-37); BLOOD UREA NITROGEN 27 mg/dL (7-18); CALCIUM 9.3 mg/dL (8.5-10.1); CARBON DIOXIDE 36.5 mmol/L (21-32); CHLORIDE 102 mmol/L (98-107); COR NA(FOR HYPERGLY) 144 mmol/L (136-145); CREATININE 1.29 mg/dL (0.70-1.30); GLUCOSE 116 mg/dL (65-99); MAGNESIUM 1.6 mg/dL (2.0-2.9); POTASSIUM 4.7 mmol/L (3.5-5.1); SODIUM 144 mmol/L (136-145); TOTAL PROTEIN 7.5 g/dL (6.4-8.2); eGFR NON BLACK RACES > 60 (>60)
[2025-01-15] MEDS ORDERED: CONSULT PHARMACY - POTASSIUM & MAGNESIUM XX SCH (07:00)
[2025-01-15] MEDS ORDERED: GLUCOPHAGE ONE (07:51)
[2025-01-15] MEDS: MAG-OX TAB PO SCH (08:13)
[2025-01-15] MEDS: MAGNESIUM SULFATE 1 GRAM/100 mL PREMIX 1 G/100 ML BAG IV SCH (09:25)
[2025-01-15] MEDS: LASIX IVP SCH (11:11)
[2025-01-15] MEDS: CONSULT PHARMACY - POTASSIUM & MAGNESIUM XX SCH (13:03)
[2025-01-15] MEDS: GLUCOPHAGE ONE (15:48)
[2025-01-16 05:10] LABS: BASOPHILS # (AUTO) 0.1 X10^3/uL (0.0-0.1); EOSINOPHILS # (AUTO) 0.3 x10^3/uL (0.0-0.2); EOSINOPHILS % (AUTO) 4.2 % (0.9-2.9); HEMATOCRIT 29.9 % (42.0-54.0); LYMPHOCYTES # (AUTO) 1.1 X10^3/uL (1.3-2.9); LYMPHOCYTES % (AUTO) 12.9 % (21.0-51.0); MEAN CORPUSCULAR HEMOGLOBIN 29.6 pg (27.0-34.0); MEAN CORPUSCULAR HGB CONC 33.4 g/dL (33.0-35.0); MEAN CORPUSCULAR VOLUME 88.6 fL (80.0-100.0); MEAN PLATELET VOLUME 8.8 fL (7.4-11.0); MONOCYTES # (AUTO) 0.8 x10^3/uL (0.3-0.8); MONOCYTES % (AUTO) 9.9 % (0.0-13.0); PLATELET COUNT 334 X10^3/uL (150.0-450.0); RED BLOOD COUNT 3.38 X10^6/uL (4.7-6.0); RED CELL DISTRIBUTION WIDTH 16.2 % (11.6-16.5); WHITE BLOOD COUNT 8.3 X10^3/uL (3.6-10.0)
[2025-01-16] MEDS ORDERED: GLUCOPHAGE ONE (05:22)
[2025-01-16 05:25] LABS: ALANINE AMINOTRANSFERASE 16 Units/L (12-78); ALBUMIN 3.6 g/dL (3.4-5.0); ALKALINE PHOSPHATASE 84 Units/L (46-116); ASPARTATE AMINO TRANSFERASE 21 Units/L (15-37); BLOOD UREA NITROGEN 36 mg/dL (7-18); CALCIUM 9.3 mg/dL (8.5-10.1); CARBON DIOXIDE 31.1 mmol/L (21-32); CHLORIDE 102 mmol/L (98-107); COR NA(FOR HYPERGLY) 144 mmol/L (136-145); CREATININE 1.27 mg/dL (0.70-1.30); GLUCOSE 123 mg/dL (65-99); MAGNESIUM 2.3 mg/dL (2.0-2.9); POTASSIUM 4.8 mmol/L (3.5-5.1); SODIUM 143 mmol/L (136-145); TOTAL PROTEIN 7.4 g/dL (6.4-8.2); eGFR NON BLACK RACES > 60 (>60)
[2025-01-16] MEDS ORDERED: OMNIPAQUE 350 mg/mL 100 mL BTL 100 ML ONE (08:32)
[2025-01-16] MEDS ORDERED: NS 100 ML IV 100 ML ONE (08:32)
--- NOTE | 2025-01-16 10:41 | CT ---
EXAM: CHEST W&W/O CONTRAST HISTORY: CHF, hypoxia; COMPARISON: None TECHNIQUE: Multiple CT axial images of the chest were obtained without and with IV contrast. Coronal and sagitt al images were reconstructed. Dose reduction techniques included Automated Exposure Control (AEC) and adjustment of mA and kV. FINDINGS: Without contrast: Atherosclerotic calcification is present in the coronary arteries, aorta, and major arterial branches. With contrast: The heart is normal in size. The pulmonary artery and aorta have a normal caliber. N o mediastinal mass or significant lymphadenopathy. The thyroid has a normal size and configuration. No axillary mass or significant axillary lymphadeno laurence is identified. Nonspecific skin nodules are seen in the anterior subdermal chest, largest sonia uring 20 mm. These might be epidermal inclusion cysts. Wedge-shaped opacity right middle lobe could be atelectasis or pneumonia. Otherwise lungs are clear. No lung mass. No pleural effusion. Liver was not completely imaged but is large measuring over 21 cm. Ventral hernia contains fat and b owel but incompletely imaged. Degenerative spondylitic changes are present in the spine. IMPRESSION: 1. Right middle lobe atelectasis or pneumonia 2. Hepatomegaly 3. Ventral hernia upper abdominal wall THIS IS AN ELECTRONICALLY VERIFIED FINAL REPORT 01/16/2025 10:38 AM - Electronically signed by Florentin Bradshaw MD
[2025-01-16] MEDS ORDERED: NS 250 ML IV 250 ML IV ONE (11:37)
[2025-01-16] MEDS: LEVAQUIN PREMIX IV 500 MG 500 MG/100 ML BAG IV SCH (12:01)
[2025-01-16] MEDS: ZOSYN VIAL 3.375 GRAMS 3.375 G in NS 100 ML IV 100 ML IV SCH (13:32)
[2025-01-17 06:17] LABS: BASOPHILS # (AUTO) 0.1 X10^3/uL (0.0-0.1); BASOPHILS % (AUTO) 0.7 % (0.2-1.0); EOSINOPHILS # (AUTO) 0.4 x10^3/uL (0.0-0.2); EOSINOPHILS % (AUTO) 4.3 % (0.9-2.9); HEMATOCRIT 30.9 % (42.0-54.0); HEMOGLOBIN 10.3 g/dL (13.5-18.0); LYMPHOCYTES # (AUTO) 0.8 X10^3/uL (1.3-2.9); MEAN CORPUSCULAR HEMOGLOBIN 29.2 pg (27.0-34.0); MEAN CORPUSCULAR HGB CONC 33.3 g/dL (33.0-35.0); MEAN CORPUSCULAR VOLUME 87.7 fL (80.0-100.0); MEAN PLATELET VOLUME 8.6 fL (7.4-11.0); MONOCYTES # (AUTO) 0.7 x10^3/uL (0.3-0.8); MONOCYTES % (AUTO) 8.9 % (0.0-13.0); NEUTROPHILS # (AUTO) 6.4 x10^3/uL (2.2-4.8); NEUTROPHILS % (AUTO) 76.1 % (42.0-75.0); PLATELET COUNT 335 X10^3/uL (150.0-450.0); RED BLOOD COUNT 3.52 X10^6/uL (4.7-6.0); RED CELL DISTRIBUTION WIDTH 16.2 % (11.6-16.5); WHITE BLOOD COUNT 8.4 X10^3/uL (3.6-10.0)
[2025-01-17 06:28] LABS: ALANINE AMINOTRANSFERASE 28 Units/L (12-78); ALBUMIN 3.7 g/dL (3.4-5.0); ALKALINE PHOSPHATASE 101 Units/L (46-116); ASPARTATE AMINO TRANSFERASE 30 Units/L (15-37); BLOOD UREA NITROGEN 39 mg/dL (7-18); CALCIUM 9.2 mg/dL (8.5-10.1); CARBON DIOXIDE 34.5 mmol/L (21-32); CHLORIDE 102 mmol/L (98-107); COR NA(FOR HYPERGLY) 144 mmol/L (136-145); CREATININE 1.63 mg/dL (0.70-1.30); GLUCOSE 201 mg/dL (65-99); POTASSIUM 4.8 mmol/L (3.5-5.1); SODIUM 142 mmol/L (136-145); TOTAL PROTEIN 7.6 g/dL (6.4-8.2); eGFR NON BLACK RACES 46 (>60)
[2025-01-17] MEDS: XOPENEX 1.25 MG/3 ML NEBULE NEB SCH (08:42)
[2025-01-17] MEDS: NovoLIN R (or HumuLIN R) SUBCUT PRN (21:33)
[2025-01-18 05:44] LABS: BASOPHILS # (AUTO) 0.1 X10^3/uL (0.0-0.1); BASOPHILS % (AUTO) 0.7 % (0.2-1.0); EOSINOPHILS # (AUTO) 0.3 x10^3/uL (0.0-0.2); EOSINOPHILS % (AUTO) 3.2 % (0.9-2.9); HEMATOCRIT 30.9 % (42.0-54.0); HEMOGLOBIN 10.3 g/dL (13.5-18.0); LYMPHOCYTES # (AUTO) 0.8 X10^3/uL (1.3-2.9); LYMPHOCYTES % (AUTO) 9.9 % (21.0-51.0); MEAN CORPUSCULAR HEMOGLOBIN 28.9 pg (27.0-34.0); MEAN CORPUSCULAR HGB CONC 33.2 g/dL (33.0-35.0); MEAN CORPUSCULAR VOLUME 87.2 fL (80.0-100.0); MEAN PLATELET VOLUME 8.8 fL (7.4-11.0); MONOCYTES # (AUTO) 0.9 x10^3/uL (0.3-0.8); MONOCYTES % (AUTO) 9.9 % (0.0-13.0); NEUTROPHILS # (AUTO) 6.6 x10^3/uL (2.2-4.8); NEUTROPHILS % (AUTO) 76.3 % (42.0-75.0); PLATELET COUNT 316 X10^3/uL (150.0-450.0); RED BLOOD COUNT 3.55 X10^6/uL (4.7-6.0); RED CELL DISTRIBUTION WIDTH 16.2 % (11.6-16.5); WHITE BLOOD COUNT 8.6 X10^3/uL (3.6-10.0)
[2025-01-18 06:03] LABS: ALANINE AMINOTRANSFERASE 48 Units/L (12-78); ALBUMIN 3.7 g/dL (3.4-5.0); ALKALINE PHOSPHATASE 113 Units/L (46-116); ASPARTATE AMINO TRANSFERASE 45 Units/L (15-37); BLOOD UREA NITROGEN 40 mg/dL (7-18); CALCIUM 9.2 mg/dL (8.5-10.1); CARBON DIOXIDE 31.8 mmol/L (21-32); CHLORIDE 102 mmol/L (98-107); COR NA(FOR HYPERGLY) 146 mmol/L (136-145); CREATININE 1.48 mg/dL (0.70-1.30); GLUCOSE 194 mg/dL (65-99); SODIUM 144 mmol/L (136-145); TOTAL PROTEIN 7.7 g/dL (6.4-8.2); eGFR NON BLACK RACES 52 (>60)
[2025-01-18] MEDS: NS 250 ML IV 25 ML IV PRN (08:25)
[2025-01-18] MEDS ORDERED: GLUCOPHAGE ONE (16:04)
[2025-01-19] MEDS ORDERED: GLUCOPHAGE ONE ×2 (05:35→15:53)
[2025-01-19] MEDS: PERCOCET TAB 5/325 MG PO PRN (05:56)
[2025-01-19 06:18] LABS: BASOPHILS # (AUTO) 0.1 X10^3/uL (0.0-0.1); BASOPHILS % (AUTO) 0.8 % (0.2-1.0); EOSINOPHILS # (AUTO) 0.2 x10^3/uL (0.0-0.2); EOSINOPHILS % (AUTO) 1.5 % (0.9-2.9); HEMATOCRIT 30.2 % (42.0-54.0); HEMOGLOBIN 10.1 g/dL (13.5-18.0); LYMPHOCYTES # (AUTO) 0.9 X10^3/uL (1.3-2.9); MEAN CORPUSCULAR HEMOGLOBIN 29.2 pg (27.0-34.0); MEAN CORPUSCULAR HGB CONC 33.4 g/dL (33.0-35.0); MEAN CORPUSCULAR VOLUME 87.6 fL (80.0-100.0); MEAN PLATELET VOLUME 8.8 fL (7.4-11.0); MONOCYTES # (AUTO) 1.1 x10^3/uL (0.3-0.8); NEUTROPHILS # (AUTO) 8.1 x10^3/uL (2.2-4.8); NEUTROPHILS % (AUTO) 77.7 % (42.0-75.0); PLATELET COUNT 306 X10^3/uL (150.0-450.0); RED BLOOD COUNT 3.44 X10^6/uL (4.7-6.0); RED CELL DISTRIBUTION WIDTH 16.4 % (11.6-16.5); WHITE BLOOD COUNT 10.5 X10^3/uL (3.6-10.0)
[2025-01-19 06:35] LABS: ALANINE AMINOTRANSFERASE 72 Units/L (12-78); ALBUMIN 3.6 g/dL (3.4-5.0); ALKALINE PHOSPHATASE 131 Units/L (46-116); ASPARTATE AMINO TRANSFERASE 52 Units/L (15-37); BLOOD UREA NITROGEN 33 mg/dL (7-18); CALCIUM 9.4 mg/dL (8.5-10.1); CARBON DIOXIDE 32.4 mmol/L (21-32); CHLORIDE 103 mmol/L (98-107); COR NA(FOR HYPERGLY) 146 mmol/L (136-145); CREATININE 1.52 mg/dL (0.70-1.30); GLUCOSE 281 mg/dL (65-99); MAGNESIUM 2.1 mg/dL (2.0-2.9); POTASSIUM 4.6 mmol/L (3.5-5.1); SODIUM 142 mmol/L (136-145); TOTAL PROTEIN 7.6 g/dL (6.4-8.2); eGFR NON BLACK RACES 50 (>60)
[2025-01-19] MEDS: PEPCID TAB 20 MG PO SCH (09:18)
[2025-01-19] MEDS: DUONEB 0.5 MG/3 MG (3 mL) NEB SCH (13:13)
[2025-01-20 06:25] LABS: BASOPHILS # (AUTO) 0.1 X10^3/uL (0.0-0.1); BASOPHILS % (AUTO) 0.8 % (0.2-1.0); EOSINOPHILS # (AUTO) 0.3 x10^3/uL (0.0-0.2); EOSINOPHILS % (AUTO) 3.3 % (0.9-2.9); HEMOGLOBIN 9.8 g/dL (13.5-18.0); LYMPHOCYTES % (AUTO) 11.7 % (21.0-51.0); MEAN CORPUSCULAR HEMOGLOBIN 28.8 pg (27.0-34.0); MEAN CORPUSCULAR HGB CONC 32.7 g/dL (33.0-35.0); MEAN CORPUSCULAR VOLUME 88.2 fL (80.0-100.0); MEAN PLATELET VOLUME 9.3 fL (7.4-11.0); MONOCYTES # (AUTO) 0.9 x10^3/uL (0.3-0.8); MONOCYTES % (AUTO) 10.7 % (0.0-13.0); NEUTROPHILS # (AUTO) 6.2 x10^3/uL (2.2-4.8); NEUTROPHILS % (AUTO) 73.5 % (42.0-75.0); PLATELET COUNT 276 X10^3/uL (150.0-450.0); RED CELL DISTRIBUTION WIDTH 16.4 % (11.6-16.5); WHITE BLOOD COUNT 8.5 X10^3/uL (3.6-10.0)
[2025-01-20 06:29] LABS: ALANINE AMINOTRANSFERASE 68 Units/L (12-78); ALBUMIN 3.7 g/dL (3.4-5.0); ALKALINE PHOSPHATASE 120 Units/L (46-116); ASPARTATE AMINO TRANSFERASE 36 Units/L (15-37); BLOOD UREA NITROGEN 39 mg/dL (7-18); CALCIUM 9.6 mg/dL (8.5-10.1); CARBON DIOXIDE 32.5 mmol/L (21-32); CHLORIDE 102 mmol/L (98-107); COR NA(FOR HYPERGLY) 143 mmol/L (136-145); CREATININE 1.91 mg/dL (0.70-1.30); GLUCOSE 199 mg/dL (65-99); POTASSIUM 4.8 mmol/L (3.5-5.1); SODIUM 141 mmol/L (136-145); TOTAL PROTEIN 7.8 g/dL (6.4-8.2); eGFR NON BLACK RACES 39 (>60)
[2025-01-20] MEDS: MICARDIS PO SCH (09:02)
[2025-01-20] MEDS: NORVASC TAB 5 MG PO SCH (09:03)
[2025-01-20] MEDS: GLUCOPHAGE ONE ×2 (15:33→23:29)
[2025-01-21] MEDS: GLUCOPHAGE ONE (06:02)
[2025-01-21 06:10] LABS: BASOPHILS # (AUTO) 0.1 X10^3/uL (0.0-0.1); BASOPHILS % (AUTO) 0.6 % (0.2-1.0); EOSINOPHILS # (AUTO) 0.3 x10^3/uL (0.0-0.2); EOSINOPHILS % (AUTO) 3.7 % (0.9-2.9); HEMATOCRIT 28.5 % (42.0-54.0); HEMOGLOBIN 9.5 g/dL (13.5-18.0); MEAN CORPUSCULAR HGB CONC 33.3 g/dL (33.0-35.0); MEAN CORPUSCULAR VOLUME 87.3 fL (80.0-100.0); MEAN PLATELET VOLUME 9.1 fL (7.4-11.0); MONOCYTES # (AUTO) 0.9 x10^3/uL (0.3-0.8); MONOCYTES % (AUTO) 10.2 % (0.0-13.0); NEUTROPHILS # (AUTO) 6.9 x10^3/uL (2.2-4.8); NEUTROPHILS % (AUTO) 74.5 % (42.0-75.0); PLATELET COUNT 274 X10^3/uL (150.0-450.0); RED BLOOD COUNT 3.27 X10^6/uL (4.7-6.0); RED CELL DISTRIBUTION WIDTH 16.3 % (11.6-16.5); WHITE BLOOD COUNT 9.3 X10^3/uL (3.6-10.0)
[2025-01-21 06:31] LABS: ALANINE AMINOTRANSFERASE 53 Units/L (12-78); ALBUMIN 3.6 g/dL (3.4-5.0); ALKALINE PHOSPHATASE 119 Units/L (46-116); ASPARTATE AMINO TRANSFERASE 27 Units/L (15-37); BLOOD UREA NITROGEN 40 mg/dL (7-18); CALCIUM 9.6 mg/dL (8.5-10.1); CARBON DIOXIDE 28.3 mmol/L (21-32); CHLORIDE 104 mmol/L (98-107); COR NA(FOR HYPERGLY) 142 mmol/L (136-145); CREATININE 1.63 mg/dL (0.70-1.30); GLUCOSE 160 mg/dL (65-99); SODIUM 141 mmol/L (136-145); TOTAL PROTEIN 7.6 g/dL (6.4-8.2); eGFR NON BLACK RACES 46 (>60)
[2025-01-21 06:32] LABS: POTASSIUM 5.2 mmol/L (3.5-5.1)
[2025-01-21 08:38] VITALS: BP 135/90; PULSE 74; TEMP 97.4; O2SAT 93
[2025-01-21 12:44] VITALS: RESP 20
== END 2025-01-21 14:25 | disposition home or self-care (01) | DRG 291 ==
LOC: ER 15:50 → MED/SURG 15:50 → ICU 15:50 → MED/SURG 01-15 17:04
PROVIDERS: ADMIT Internal Medicine; ATTEND Obstetrics & Gynecology Obstetrics
DX: Z68.41 Body mass index [BMI] 40.0-44.9, adult; E66.01 Morbid (severe) obesity due to excess calories; I87.8 Other specified disorders of veins; R94.31 Abnormal electrocardiogram [ECG] [EKG]; R79.1 Abnormal coagulation profile; R21 Rash and other nonspecific skin eruption; I25.10 Atherosclerotic heart disease of native coronary artery without angina pectoris; E11.65 Type 2 diabetes mellitus with hyperglycemia; Z03.818 Encounter for observation for suspected exposure to other biological agents ruled out; Z72.0 Tobacco use; I50.31 Acute diastolic (congestive) heart failure; R09.02 Hypoxemia; R26.89 Other abnormalities of gait and mobility; I11.0 Hypertensive heart disease with heart failure; R60.0 Localized edema; R06.02 Shortness of breath; J18.8 Other pneumonia, unspecified organism; K21.9 Gastro-esophageal reflux disease without esophagitis; E83.42 Hypomagnesemia